=== PATIENT | male | born 1960 | race Two or more races ===

== ENCOUNTER 2017-05-07 10:33 | Inpatient (IN) | payer OTHER ==
[2017-05-07 10:55] VITALS: BMI 28.5
--- NOTE | 2017-05-07 13:05 | HP ---
COWS - Scale Resting Pulse: 1= [place] 81-100 Sweatin=Flushed/Facial Moisture Restless Observation: 3= Extraneous Movement Pupil Size: 2= Moderately Dilated Bone or Joint Aches: 2= Severe Diffuse Aches Runny Nose/ Eye Tearin= Runny Nose/Eyes GI Upset > 30mins: 3= Vomiting/Diarrhea Tremor Observation: 2= Slight Tremor Visible Yawning Observation: 1= 1-2x During Session Anxiety or Irritability: 2=Irritable/Anxious Goose Flesh Skin: 0=Smooth Skin COWS Score: 20 Admission ROS S - HPI Chief Complaint: i am here for detox from heroin Allergies/Adverse Reactions: Allergies Allergy/AdvReac Type Severity Reaction Status Date / Time No Known Allergies Allergy Verified 05/07/17 11:36 History of Present Illness: this 56 years old male with heroin and cocaine dependence,seeking detox,last detox 01/14/15 to 01/17/15 [facility] not completed extensive history of drug dependence weight loss no significant period of sobriety - Ebola screening Have you traveled outside of the country in the last 21 days: No Have you had contact with anyone from an Ebola affected area: No Have you been sick,other than usual withdrawal symptoms: No - Review of Systems Constitutional: Chills, Loss of Appetite, Malaise, Night Sweats, Changes in sleep, Weakness, Unintentional Wgt. Loss EENT: reports: Tearing, Nose Congestion Respiratory: reports: No Symptoms reported Cardiac: reports: No Symptoms Reported GI: reports: Diarrhea, Nausea, Vomiting, Abdominal cramping : reports: No Symptoms Reported Musculoskeletal: reports: Back Pain, Joint Pain, Muscle Pain, Joint Stiffness Integumentary: reports: Dryness Neuro: reports: Headache, Tremors Endocrine: reports: No Symptoms Reported Hematology: reports: No Symptoms Reported Psychiatric: reports: No Sypmtoms Reported, Depressed Other Systems: Reviewed and Negative Patient History - Patient Medical History Hx Anemia: No Hx Asthma: No Hx Chronic Obstructive Pulmonary Disease (COPD): No Hx Cancer: No Hx Cardiac Disorders: No Hx Congestive Heart Failure: No Hx Hypertension: Yes (no med) Hx Hypercholesterolemia: No Hx Pacemaker: No HX Cerebrovascular Accident: No Hx Seizures: No Hx Dementia: No Hx Diabetes: No Hx Gastrointestinal Disorders: No Hx Liver Disease: No Hx Genitourinary Disorders: No Hx Sexually Transmitted Disorders: No Hx Renal Disease (ESRD): No Hx Thyroid Disease: No Hx Human Immunodeficiency Virus (HIV): No (negative 2016) Hx Hepatitis C: No Hx Depression: No Hx Suicide Attempt: No Hx Bipolar Disorder: No Hx Schizophrenia: No Other Medical History: no suicidal.no homicidal - Patient Surgical History Past Surgical History: Yes Hx Neurologic Surgery: No Hx Cataract Extraction: No Hx Cardiac Surgery: No Hx Lung Surgery: No Hx Breast Surgery: No Hx Breast Biopsy: No Hx Abdominal Surgery: Yes (L INGUINAL HERNIA REPAIR in 2013) Hx Appendectomy: No Hx Cholecystectomy: No Hx Genitourinary Surgery: No Hx Section: No Hx Orthopedic Surgery: No Anesthesia Reaction: No - PPD History Previous Implant?: Yes Documented Results: Positive w/o proof Implanted On Prior [facility] Admission?: No PPD to be Administered?: No - Smoking Cessation Smoking history: Current every day smoker Have you smoked in the past 12 months: Yes Aproximately how many cigarettes per day: 10 Hx Chewing Tobacco Use: No Initiated information on smoking cessation: Yes 'Breaking Loose' booklet given: 05/07/17 - Substance & Tx. History Hx Alcohol Use: No Hx Substance Use: Yes Substance Use Type: Cocaine, Heroin Hx Substance Use Treatment: Yes ([facility] 01/14/15 to 01/17/15 not completed) - Substances Abused Heroin Route: Inhalation Frequency: Daily Amount used: 10-11 bags Age of first use: 24 Date of Last Use: 05/07/17 Cocaine Route: Inhalation Frequency: 1-2 times per week Amount used: 20$ Age of first use: 22 Date of Last Use: 04/24/17 Family Disease History - Family Disease History Family Disease History: Heart Disease: Father () Admission Physical Exam S - Vital Signs Vital Signs: Vital Signs - 24 hr 05/07/17 10:54 Temperature 98.1 F Pulse Rate 80 Respiratory 18 Rate Blood Pressure 163/101 - Physical General Appearance: Yes: Moderate Distress, Tremorous, Irritable, Sweating, Anxious HEENTM: Yes: Normal ENT Inspection, HOLLI, Pharynx Normal Respiratory: Yes: Lungs Clear, Normal Breath Sounds, No Respiratory Distress Neck: Yes: Within Normal Limits, Supple, Trachea in good position Breast: Yes: Breast Exam Deferred, Within Normal Limits Cardiology: Yes: Within Normal Limits, Regular Rhythm, Regular Rate, S1, S2 Abdominal: Yes: Within Normal Limits, Normal Bowel Sounds, Non Tender, Flat, Soft, Surgical Scar Genitourinary: Yes: Within Normal Limits Back: Yes: Normal Inspection, Muscle Spasm Musculoskeletal: Yes: Back pain, Joint Stiffness, Muscle Pain Extremities: Yes: Normal Range of Motion, Tremors Neurological: Yes: auto body man II-XII NML intact, Alert, Motor Strength 5/5 Integumentary: Yes: Dry Lymphatic: Yes: Within Normal Limits - Diagnostic (1) Opioid dependence with withdrawal Current Visit: Yes Status: Acute (2) Cocaine dependence Current Visit: Yes Status: Acute (3) Hypertension Current Visit: No Status: Chronic (4) Depression Current Visit: Yes Status: Acute (5) Positive PPD Current Visit: Yes Status: Acute (6) Weight loss Current Visit: Yes Status: Acute Cleared for Admission [facility] - [facility] Level of Care: Medically Managed Detox Regimen/Protocol: Methadone [facility] Breath Alcohol Content Breath Alcohol Content: 0 Urine Drug Screen - Results Drug Screen Negative: No Urine Drug Screen Results: GIOVANNA-Cocaine, OPI-Opiates
[2017-05-07] MEDS ORDERED: hydrOXYzine PAMOATE 25 MG CAPSULE (FP) PO PRN (13:24)
[2017-05-07] MEDS ORDERED: P-EPHED 60MG/TRIPROLIDI 2.5MG TABLET PO PRN (13:24)
[2017-05-07] MEDS ORDERED: LOPERAMIDE HCL 2 MG CAPSULE PO PRN (13:24)
[2017-05-07] MEDS ORDERED: MAG HYDROX/AL HYDROX/SIMETH 30 ML UNIT-DOSE CUP PO PRN (13:24)
[2017-05-07] MEDS ORDERED: MENTHOL/PHENOL 1 EACH UD MM PRN (13:24)
[2017-05-07] MEDS ORDERED: MAGNESIUM CITRATE 300 ML BOTTLE PO PRN (13:24)
[2017-05-07] MEDS ORDERED: guaiFENesin/D-METHORPHAN HB 10 ML UNIT-DOSE CUPS PO PRN (13:24)
[2017-05-07] MEDS ORDERED: MAGNESIUM HYDROX 2400MG/30ML ORAL SUSPENSION 30 ML CUP PO PRN (13:24)
[2017-05-07] MEDS ORDERED: ACETAMINOPHEN 325 MG TABLET (FP) PO PRN (13:24)
[2017-05-07] MEDS ORDERED: METHADONE HCL 10 MG TABLET (FOR DETOX USE ONLY) PO ONE ×2 (13:57→23:00)
[2017-05-07] MEDS: diazePAM 5 MG TABLET PO PRN ×2 (14:20→21:33)
[2017-05-07] MEDS: NICOTINE 21 MG/24 HOURS TOPICAL PATCH TD SCH (14:20)
--- NOTE | 2017-05-07 15:09 | EKG ---
Test Reason : Blood Pressure : / mmHG Vent. Rate : 078 BPM Atrial Rate : 078 BPM P-R Int : 148 ms QRS Dur : 094 ms QT Int : 404 ms P-R-T Axes : 058 030 040 degrees QTc Int : 460 ms NORMAL SINUS RHYTHM VOLTAGE CRITERIA FOR LEFT VENTRICULAR HYPERTROPHY NONSPECIFIC T WAVE ABNORMALITY PROLONGED QT ABNORMAL ECG NO PREVIOUS ECGS AVAILABLE Confirmed by Que Rodriguez ([id number]) on 05/07/2017 3:09:00 PM Referred By: Confirmed By:Que Rodriguez
--- NOTE | 2017-05-07 16:40 | PN ---
Isabel Progress Note Note: patient has history of hypertension bp 200/105 hypertension begin amlodopin 10 mg now and lisinopril 10 mg now case discussed with nurse who care for the patient, medications are available now continue monitor bp around 6pm
[2017-05-07] MEDS: LISINOPRIL 10 MG TABLET (FP) PO SCH ×2 (16:45→21:33)
[2017-05-07] MEDS: amLODIPine BESYLATE 10 MG TABLET (FP) PO SCH (16:45)
[2017-05-07] MEDS: cloNIDine HCL 0.1 MG TABLET PO PRN ×2 (17:57→23:43)
[2017-05-07] MEDS: THIAMINE HCL 100 MG TABLET (FP) PO SCH (21:33)
[2017-05-07 22:27] LABS: URINE APPEARANCE CLEAR; URINE BILIRUBIN NEGATIVE (NEGATIVE); URINE BLOOD NEGATIVE (NEGATIVE); URINE COLOR DKYELLOW; URINE GLUCOSE (UA) NEGATIVE (NEGATIVE); URINE KETONE NEGATIVE (NEGATIVE); URINE LEUK ESTERASE NEGATIVE (NEGATIVE); URINE NITRITE NEGATIVE (NEGATIVE); URINE PROTEIN NEGATIVE (NEGATIVE); URINE UROBILINOGEN 4.0 E.U/dl mg/dL (0.2-1.0)
[2017-05-08] MEDS: diazePAM 5 MG TABLET PO PRN ×2 (07:15→21:48)
[2017-05-08] MEDS: IBUPROFEN 400 MG TABLET (FP) PO PRN (07:16)
[2017-05-08] MEDS: cloNIDine HCL 0.1 MG TABLET PO PRN ×2 (07:16→18:40)
[2017-05-08 09:52] LABS: HEMATOCRIT 43.4 % (35.4-49); HEMOGLOBIN 14.1 GM/dL (11.7-16.9); MCH 32.7 pg (25.7-33.7); MCHC 32.5 g/dl (32.0-35.9); MEAN CELL VOLUME 100.8 fl (80-96); MEAN PLT VOLUME 9.3 fl (7.5-11.1); PLATELET COUNT 227 K/MM3 (134-434); RDW 13.5 % (11.9-15.9); WHITE BLOOD COUNT 7.1 K/mm3 (4.0-10.0)
--- NOTE | 2017-05-08 09:57 | PN ---
BHS COWS - Scale Resting Pulse: 1= [place] 81-100 Sweatin= Chills/Flushing Restless Observation: 3= Extraneous Movement Pupil Size: 2= Moderately Dilated Bone or Joint Aches: 4=Acute Joint/Muscle Pain Runny Nose/ Eye Tearin= None GI Upset > 30mins: 0= None Tremor Observation of Outstretched Hands: 1= Tremor [place], Not Seen Yawning Observation: 1= 1-2x During Session Anxiety or Irritability: 2=Irritable/Anxious Goose Flesh Skin: 0=Smooth Skin COWS Score: 15 BHS Progress Note (SOAP) Subjective: ANXIETY,SWEATS, MUSCLE AND JOINT PAINS, YAWNING,FATIGUE. Objective: 05/08/17 10:38 Vital Signs 05/08/17 05/08/17 05/08/17 03:30 06:12 07:53 Temperature 97 F L Pulse Rate 75 72 Respiratory 18 18 Rate Blood Pressure 183/105 172/91 05/08/17 09:24 Temperature 97.5 F L Pulse Rate 99 H Respiratory 20 Rate Blood Pressure 139/90 Laboratory Last Values WBC 7.1 K/mm3 (4.0-10.0) 05/08/17 06:00 RBC 4.30 M/mm3 (4.00-5.60) 05/08/17 06:00 Hgb 14.1 GM/dL (11.7-16.9) 05/08/17 06:00 Hct 43.4 % (35.4-49) 05/08/17 06:00 MCV 100.8 fl (80-96) H 05/08/17 06:00 MCH 32.7 pg (25.7-33.7) 05/08/17 06:00 MCHC 32.5 g/dl (32.0-35.9) 05/08/17 06:00 RDW 13.5 % (11.9-15.9) 05/08/17 06:00 Plt Count 227 K/MM3 (134-434) 05/08/17 06:00 MPV 9.3 fl (7.5-11.1) 05/08/17 06:00 Sodium 141 mmol/L (136-145) 05/08/17 06:00 Potassium 4.1 mmol/L (3.5-5.1) 05/08/17 06:00 Chloride 103 mmol/L (98-107) 05/08/17 06:00 Carbon Dioxide 30 mmol/L (21-32) 05/08/17 06:00 Anion Gap 8 (8-16) 05/08/17 06:00 BUN 15 mg/dL (7-18) 05/08/17 06:00 Creatinine 0.7 mg/dL (0.7-1.3) D 05/08/17 06:00 Creat Clearance w eGFR > 60 (>60) 05/08/17 06:00 Random Glucose 84 mg/dL (74-106) 05/08/17 06:00 Calcium 8.7 mg/dL (8.5-10.1) 05/08/17 06:00 Total Bilirubin 0.4 mg/dL (0.2-1.0) 05/08/17 06:00 AST 57 U/L (15-37) H D 05/08/17 06:00 ALT 59 U/L (12-78) D 05/08/17 06:00 Alkaline Phosphatase 155 U/L (45-117) H D 05/08/17 06:00 Total Protein 6.8 g/dl (6.4-8.2) 05/08/17 06:00 Albumin 3.6 g/dl (3.4-5.0) 05/08/17 06:00 Urine Color Dkyellow 05/07/17 15:45 Urine Appearance Clear 05/07/17 15:45 Urine pH 6.0 (5.0-8.0) 05/07/17 15:45 Ur Specific [place] 1.021 (1.001-1.035) 05/07/17 15:45 Urine Protein Negative (NEGATIVE) 05/07/17 15:45 Urine Glucose (UA) Negative (NEGATIVE) 05/07/17 15:45 Urine Ketones Negative (NEGATIVE) 05/07/17 15:45 Urine Blood Negative (NEGATIVE) 05/07/17 15:45 Urine Nitrite Negative (NEGATIVE) 05/07/17 15:45 Urine Bilirubin Negative (NEGATIVE) 05/07/17 15:45 Urine Urobilinogen 4.0 e.u/dl mg/dL (0.2-1.0) 05/07/17 15:45 Ur Leukocyte Esterase Negative (NEGATIVE) 05/07/17 15:45 RPR Titer Nonreactive (NONREACTIVE) 05/08/17 06:00 Assessment: 05/08/17 13:14 WITHDRAWAL SX Plan: CONTINUE DETOX
[2017-05-08 09:58] LABS: CHLORIDE 103 mmol/L (98-107); POTASSIUM 4.1 mmol/L (3.5-5.1); SODIUM 141 mmol/L (136-145)
[2017-05-08] MEDS ORDERED: METHADONE HCL 10 MG TABLET (FOR DETOX USE ONLY) PO ONE (10:00)
[2017-05-08 10:08] LABS: ALBUMIN 3.6 g/dl (3.4-5.0); ALK PHOS 155 U/L (45-117); ANION GAP 8 (8-16); BILIRUBIN,TOTAL 0.4 mg/dL (0.2-1.0); BLOOD UREA NITROGEN 15 mg/dL (7-18); CALCIUM 8.7 mg/dL (8.5-10.1); CO2 30 mmol/L (21-32); CREATININE 0.7 mg/dL (0.7-1.3); GLUCOSE,RANDOM 84 mg/dL (74-106); SGOT/AST 57 U/L (15-37); SGPT/ALT 59 U/L (12-78); TOT PROT 6.8 g/dl (6.4-8.2)
[2017-05-08] MEDS: amLODIPine BESYLATE 10 MG TABLET (FP) PO SCH (10:16)
[2017-05-08] MEDS: PRENATAL VITAMINS W/ FOLIC ACID TABLET (FP) PO SCH (10:16)
[2017-05-08] MEDS: LISINOPRIL 10 MG TABLET (FP) PO SCH ×2 (10:16→21:49)
[2017-05-08] MEDS: NICOTINE 21 MG/24 HOURS TOPICAL PATCH TD SCH (10:16)
--- NOTE | 2017-05-08 14:11 | CONSULT ---
[facility] Psychiatric Consult - Data Date of interview: 05/08/17 Admission source: [facility] Identifying data: Readmission to [facility] for this 56 y/o male seeking detox treatment on for heroin and cocaine dependence.Patient is single,a father of seven,homeless,unemployed and reportedly denied of financial assistance. Substance Abuse History: Confirmed by patient in this interview.See current [facility] report for details : Smoking history: Current every day smoker. Have you smoked in the past 12 months: Yes. Aproximately how many cigarettes per day: 10. Hx Chewing Tobacco Use: No. Initiated information on smoking cessation: Yes. 'Breaking Loose' booklet given: 05/07/17. - Substance & Tx. History. Hx Alcohol Use: No. Hx Substance Use: Yes. Substance Use Type: Cocaine, Heroin. Hx Substance Use Treatment: Yes ([facility] 01/14/15 to 01/17/15 not completed). - Substances Abused. Heroin. Route: Inhalation. Frequency: Daily. Amount used: 10-11 bags. Age of first use: 24. Date of Last Use: 05/07/17. Cocaine. Route: Inhalation. Frequency: 1-2 times per week. Amount used: 20$. Age of first use: 22. Date of Last Use: 04/24/17 Medical History: Hypertension,arthritis and a history of left inguinal herniorraphy. Psychiatric History: Patient denies. Physical/Sexual Abuse/Trauma History: Patient denies. Additional Comment: Urine Drug Screen Results: GIOVANNA-Cocaine, OPI-Opiates.Noted. Mental Status Exam - Mental Status Exam Alert and Oriented to: Time, Place, Person Cognitive Function: Good Patient Appearance: Well Groomed (tattoos on both forearms) Mood: Nervous, Withdrawn, Anxious Affect: Mood Congruent, Constricted Patient Behavior: Fatigued, Appropriate, Cooperative Speech Pattern: Clear, Appropriate (estonian-speaking) Voice Loudness: Normal Thought Process: Intact, Goal Oriented Thought Disorder: Not Present Hallucinations: Denies Suicidal Ideation: Denies Homicidal Ideation: Denies Insight/Judgement: Poor Sleep: Well Appetite: Good Muscle strength/Tone: Normal Gait/Station: Normal Psychiatric Findings - Problem List ([place] 1, 2,3) (1) Opioid dependence with withdrawal Current Visit: Yes Status: Acute (2) Cocaine dependence Current Visit: Yes Status: Acute Qualifiers: Substance use status: uncomplicated Qualified Code(s): F14.20 - Cocaine dependence, uncomplicated (3) Nicotine dependence Current Visit: Yes Status: Acute - Initial Treatment Plan Initial Treatment Plan: Psychoeducation.Detoxification.Observation.
[2017-05-08] MEDS: THIAMINE HCL 100 MG TABLET (FP) PO SCH (21:48)
[2017-05-09] MEDS: IBUPROFEN 400 MG TABLET (FP) PO PRN (05:02)
[2017-05-09] MEDS: diazePAM 5 MG TABLET PO PRN ×2 (05:30→22:00)
[2017-05-09] MEDS: cloNIDine HCL 0.1 MG TABLET PO PRN (05:30)
[2017-05-09] MEDS ORDERED: METHADONE HCL 5 MG TABLET (FOR DETOX USE ONLY) PO ONE (10:00)
--- NOTE | 2017-05-09 10:15 | PN ---
BHS COWS - Scale Resting Pulse: 2= [place] 101-120 Sweatin= Chills/Flushing Restless Observation: 3= Extraneous Movement Pupil Size: 0= Normal to Room Light Bone or Joint Aches: 4=Acute Joint/Muscle Pain Runny Nose/ Eye Tearin= None GI Upset > 30mins: 0= None Tremor Observation of Outstretched Hands: 1= Tremor [place], Not Seen Yawning Observation: 2= >3x During Session Anxiety or Irritability: 2=Irritable/Anxious Goose Flesh Skin: 0=Smooth Skin COWS Score: 15 BHS Progress Note (SOAP) Subjective: ANXIETY,SWEATS/CHILLS,FATIGUE. Objective: 05/09/17 10:15 Vital Signs Temperature 98.4 F 05/09/17 08:49 Pulse Rate 104 H 05/09/17 08:49 Respiratory Rate 18 05/09/17 08:49 Blood Pressure 153/89 05/09/17 08:49 O2 Sat by Pulse Oximetry (%) Laboratory Last Values WBC 7.1 K/mm3 (4.0-10.0) 05/08/17 06:00 RBC 4.30 M/mm3 (4.00-5.60) 05/08/17 06:00 Hgb 14.1 GM/dL (11.7-16.9) 05/08/17 06:00 Hct 43.4 % (35.4-49) 05/08/17 06:00 MCV 100.8 fl (80-96) H 05/08/17 06:00 MCH 32.7 pg (25.7-33.7) 05/08/17 06:00 MCHC 32.5 g/dl (32.0-35.9) 05/08/17 06:00 RDW 13.5 % (11.9-15.9) 05/08/17 06:00 Plt Count 227 K/MM3 (134-434) 05/08/17 06:00 MPV 9.3 fl (7.5-11.1) 05/08/17 06:00 Sodium 141 mmol/L (136-145) 05/08/17 06:00 Potassium 4.1 mmol/L (3.5-5.1) 05/08/17 06:00 Chloride 103 mmol/L (98-107) 05/08/17 06:00 Carbon Dioxide 30 mmol/L (21-32) 05/08/17 06:00 Anion Gap 8 (8-16) 05/08/17 06:00 BUN 15 mg/dL (7-18) 05/08/17 06:00 Creatinine 0.7 mg/dL (0.7-1.3) D 05/08/17 06:00 Creat Clearance w eGFR > 60 (>60) 05/08/17 06:00 Random Glucose 84 mg/dL (74-106) 05/08/17 06:00 Calcium 8.7 mg/dL (8.5-10.1) 05/08/17 06:00 Total Bilirubin 0.4 mg/dL (0.2-1.0) 05/08/17 06:00 AST 57 U/L (15-37) H D 05/08/17 06:00 ALT 59 U/L (12-78) D 05/08/17 06:00 Alkaline Phosphatase 155 U/L (45-117) H D 05/08/17 06:00 Total Protein 6.8 g/dl (6.4-8.2) 05/08/17 06:00 Albumin 3.6 g/dl (3.4-5.0) 05/08/17 06:00 Urine Color Dkyellow 05/07/17 15:45 Urine Appearance Clear 05/07/17 15:45 Urine pH 6.0 (5.0-8.0) 05/07/17 15:45 Ur Specific [place] 1.021 (1.001-1.035) 05/07/17 15:45 Urine Protein Negative (NEGATIVE) 05/07/17 15:45 Urine Glucose (UA) Negative (NEGATIVE) 05/07/17 15:45 Urine Ketones Negative (NEGATIVE) 05/07/17 15:45 Urine Blood Negative (NEGATIVE) 05/07/17 15:45 Urine Nitrite Negative (NEGATIVE) 05/07/17 15:45 Urine Bilirubin Negative (NEGATIVE) 05/07/17 15:45 Urine Urobilinogen 4.0 e.u/dl mg/dL (0.2-1.0) 05/07/17 15:45 Ur Leukocyte Esterase Negative (NEGATIVE) 05/07/17 15:45 RPR Titer Nonreactive (NONREACTIVE) 05/08/17 06:00 Assessment: 05/09/17 10:15 WITHDRAWAL SX Plan: CONTINUE DETOX
[2017-05-09] MEDS: PRENATAL VITAMINS W/ FOLIC ACID TABLET (FP) PO SCH (10:19)
[2017-05-09] MEDS: LISINOPRIL 10 MG TABLET (FP) PO SCH ×2 (10:19→22:01)
[2017-05-09] MEDS: amLODIPine BESYLATE 10 MG TABLET (FP) PO SCH (10:19)
[2017-05-09] MEDS: FLUTICASONE PROP 0.05% 16 GM NASAL SPRAY NS SCH (10:19)
[2017-05-09] MEDS: NICOTINE 21 MG/24 HOURS TOPICAL PATCH TD SCH (10:20)
[2017-05-09] MEDS: THIAMINE HCL 100 MG TABLET (FP) PO SCH (22:00)
[2017-05-10] MEDS: IBUPROFEN 400 MG TABLET (FP) PO PRN (04:47)
[2017-05-10] MEDS: amLODIPine BESYLATE 10 MG TABLET (FP) PO SCH (09:13)
[2017-05-10] MEDS: diazePAM 5 MG TABLET PO PRN (09:13)
[2017-05-10] MEDS: PRENATAL VITAMINS W/ FOLIC ACID TABLET (FP) PO SCH (09:13)
[2017-05-10] MEDS: LISINOPRIL 10 MG TABLET (FP) PO SCH ×2 (09:14→22:03)
[2017-05-10] MEDS: FLUTICASONE PROP 0.05% 16 GM NASAL SPRAY NS SCH (09:15)
[2017-05-10] MEDS ORDERED: METHADONE HCL 5 MG TABLET (FOR DETOX USE ONLY) PO ONE (10:00)
[2017-05-10] MEDS: NICOTINE 21 MG/24 HOURS TOPICAL PATCH TD SCH (10:42)
--- NOTE | 2017-05-10 11:39 | PN ---
S Progress Note (SOAP) Subjective: ANXIETY,DIARRHEA,FATIGUE. Objective: 05/10/17 11:35 Vital Signs Temperature 97.0 F L 05/10/17 09:23 Pulse Rate 102 H 05/10/17 09:23 Respiratory Rate 20 05/10/17 09:23 Blood Pressure 173/103 05/10/17 09:23 O2 Sat by Pulse Oximetry (%) Laboratory Last Values WBC 7.1 K/mm3 (4.0-10.0) 05/08/17 06:00 RBC 4.30 M/mm3 (4.00-5.60) 05/08/17 06:00 Hgb 14.1 GM/dL (11.7-16.9) 05/08/17 06:00 Hct 43.4 % (35.4-49) 05/08/17 06:00 MCV 100.8 fl (80-96) H 05/08/17 06:00 MCH 32.7 pg (25.7-33.7) 05/08/17 06:00 MCHC 32.5 g/dl (32.0-35.9) 05/08/17 06:00 RDW 13.5 % (11.9-15.9) 05/08/17 06:00 Plt Count 227 K/MM3 (134-434) 05/08/17 06:00 MPV 9.3 fl (7.5-11.1) 05/08/17 06:00 Sodium 141 mmol/L (136-145) 05/08/17 06:00 Potassium 4.1 mmol/L (3.5-5.1) 05/08/17 06:00 Chloride 103 mmol/L (98-107) 05/08/17 06:00 Carbon Dioxide 30 mmol/L (21-32) 05/08/17 06:00 Anion Gap 8 (8-16) 05/08/17 06:00 BUN 15 mg/dL (7-18) 05/08/17 06:00 Creatinine 0.7 mg/dL (0.7-1.3) D 05/08/17 06:00 Creat Clearance w eGFR > 60 (>60) 05/08/17 06:00 Random Glucose 84 mg/dL (74-106) 05/08/17 06:00 Calcium 8.7 mg/dL (8.5-10.1) 05/08/17 06:00 Total Bilirubin 0.4 mg/dL (0.2-1.0) 05/08/17 06:00 AST 57 U/L (15-37) H D 05/08/17 06:00 ALT 59 U/L (12-78) D 05/08/17 06:00 Alkaline Phosphatase 155 U/L (45-117) H D 05/08/17 06:00 Total Protein 6.8 g/dl (6.4-8.2) 05/08/17 06:00 Albumin 3.6 g/dl (3.4-5.0) 05/08/17 06:00 Urine Color Dkyellow 05/07/17 15:45 Urine Appearance Clear 05/07/17 15:45 Urine pH 6.0 (5.0-8.0) 05/07/17 15:45 Ur Specific [place] 1.021 (1.001-1.035) 05/07/17 15:45 Urine Protein Negative (NEGATIVE) 05/07/17 15:45 Urine Glucose (UA) Negative (NEGATIVE) 05/07/17 15:45 Urine Ketones Negative (NEGATIVE) 05/07/17 15:45 Urine Blood Negative (NEGATIVE) 05/07/17 15:45 Urine Nitrite Negative (NEGATIVE) 05/07/17 15:45 Urine Bilirubin Negative (NEGATIVE) 05/07/17 15:45 Urine Urobilinogen 4.0 e.u/dl mg/dL (0.2-1.0) 05/07/17 15:45 Ur Leukocyte Esterase Negative (NEGATIVE) 05/07/17 15:45 RPR Titer Nonreactive (NONREACTIVE) 05/08/17 06:00 Assessment: 05/10/17 11:35 WITHDRAWAL SX Plan: CONTINUE DETOX
[2017-05-10] MEDS: THIAMINE HCL 100 MG TABLET (FP) PO SCH (22:02)
[2017-05-10] MEDS: cloNIDine HCL 0.1 MG TABLET PO SCH (22:03)
[2017-05-11] MEDS ORDERED: METHADONE HCL 10 MG TABLET (FOR DETOX USE ONLY) PO ONE (10:00)
[2017-05-11] MEDS: LISINOPRIL 10 MG TABLET (FP) PO SCH ×2 (10:26→22:43)
[2017-05-11] MEDS: PRENATAL VITAMINS W/ FOLIC ACID TABLET (FP) PO SCH (10:26)
[2017-05-11] MEDS: cloNIDine HCL 0.1 MG TABLET PO SCH ×2 (10:26→22:43)
[2017-05-11] MEDS: amLODIPine BESYLATE 10 MG TABLET (FP) PO SCH (10:26)
[2017-05-11] MEDS: FLUTICASONE PROP 0.05% 16 GM NASAL SPRAY NS SCH (10:26)
[2017-05-11] MEDS: NICOTINE 21 MG/24 HOURS TOPICAL PATCH TD SCH (10:38)
--- NOTE | 2017-05-11 13:35 | PN ---
S Progress Note (SOAP) Subjective: Fatigue, back pain,diarrhea Objective: 05/11/17 13:34 Vital Signs - 8 hr 05/11/17 05/11/17 06:18 09:45 Temperature 96.4 F L 97.6 F Pulse Rate 84 102 H Respiratory 18 20 Rate Blood Pressure 139/83 154/98 Laboratory Last Values WBC 7.1 K/mm3 (4.0-10.0) 05/08/17 06:00 RBC 4.30 M/mm3 (4.00-5.60) 05/08/17 06:00 Hgb 14.1 GM/dL (11.7-16.9) 05/08/17 06:00 Hct 43.4 % (35.4-49) 05/08/17 06:00 MCV 100.8 fl (80-96) H 05/08/17 06:00 MCH 32.7 pg (25.7-33.7) 05/08/17 06:00 MCHC 32.5 g/dl (32.0-35.9) 05/08/17 06:00 RDW 13.5 % (11.9-15.9) 05/08/17 06:00 Plt Count 227 K/MM3 (134-434) 05/08/17 06:00 MPV 9.3 fl (7.5-11.1) 05/08/17 06:00 Sodium 141 mmol/L (136-145) 05/08/17 06:00 Potassium 4.1 mmol/L (3.5-5.1) 05/08/17 06:00 Chloride 103 mmol/L (98-107) 05/08/17 06:00 Carbon Dioxide 30 mmol/L (21-32) 05/08/17 06:00 Anion Gap 8 (8-16) 05/08/17 06:00 BUN 15 mg/dL (7-18) 05/08/17 06:00 Creatinine 0.7 mg/dL (0.7-1.3) D 05/08/17 06:00 Creat Clearance w eGFR > 60 (>60) 05/08/17 06:00 Random Glucose 84 mg/dL (74-106) 05/08/17 06:00 Calcium 8.7 mg/dL (8.5-10.1) 05/08/17 06:00 Total Bilirubin 0.4 mg/dL (0.2-1.0) 05/08/17 06:00 AST 57 U/L (15-37) H D 05/08/17 06:00 ALT 59 U/L (12-78) D 05/08/17 06:00 Alkaline Phosphatase 155 U/L (45-117) H D 05/08/17 06:00 Total Protein 6.8 g/dl (6.4-8.2) 05/08/17 06:00 Albumin 3.6 g/dl (3.4-5.0) 05/08/17 06:00 Urine Color Dkyellow 05/07/17 15:45 Urine Appearance Clear 05/07/17 15:45 Urine pH 6.0 (5.0-8.0) 05/07/17 15:45 Ur Specific [place] 1.021 (1.001-1.035) 05/07/17 15:45 Urine Protein Negative (NEGATIVE) 05/07/17 15:45 Urine Glucose (UA) Negative (NEGATIVE) 05/07/17 15:45 Urine Ketones Negative (NEGATIVE) 05/07/17 15:45 Urine Blood Negative (NEGATIVE) 05/07/17 15:45 Urine Nitrite Negative (NEGATIVE) 05/07/17 15:45 Urine Bilirubin Negative (NEGATIVE) 05/07/17 15:45 Urine Urobilinogen 4.0 e.u/dl mg/dL (0.2-1.0) 05/07/17 15:45 Ur Leukocyte Esterase Negative (NEGATIVE) 05/07/17 15:45 RPR Titer Nonreactive (NONREACTIVE) 05/08/17 06:00 Labs noted Assessment: 05/11/17 13:34 Withdrawal sx Plan: Continue detox
[2017-05-11] MEDS: IBUPROFEN 400 MG TABLET (FP) PO PRN (17:43)
[2017-05-11] MEDS: THIAMINE HCL 100 MG TABLET (FP) PO SCH (22:43)
[2017-05-12] MEDS: IBUPROFEN 400 MG TABLET (FP) PO PRN (05:17)
[2017-05-12] MEDS ORDERED: METHADONE HCL 5 MG TABLET (FOR DETOX USE ONLY) PO ONE (06:00)
[2017-05-12 06:18] VITALS: BP 121/69; PULSE 72; TEMP 96
--- NOTE | 2017-05-12 12:00 | DS ---
[facility] Detox Discharge Summary Admission Date: 05/07/17 Discharge Date: 05/12/17 - History Present History: Cocaine Dependence, Opioid Dependence Pertinent Past History: HTN Hx positive PPD - Physical Exam Results Vital Signs: Vital Signs Temperature 96 F L 05/12/17 06:18 Pulse Rate 72 05/12/17 06:18 Respiratory Rate 18 05/12/17 06:18 Blood Pressure 121/69 05/12/17 06:18 O2 Sat by Pulse Oximetry (%) Pertinent Admission Physical Exam Findings: withdrawal symptoms Laboratory Last Values WBC 7.1 K/mm3 (4.0-10.0) 05/08/17 06:00 RBC 4.30 M/mm3 (4.00-5.60) 05/08/17 06:00 Hgb 14.1 GM/dL (11.7-16.9) 05/08/17 06:00 Hct 43.4 % (35.4-49) 05/08/17 06:00 MCV 100.8 fl (80-96) H 05/08/17 06:00 MCH 32.7 pg (25.7-33.7) 05/08/17 06:00 MCHC 32.5 g/dl (32.0-35.9) 05/08/17 06:00 RDW 13.5 % (11.9-15.9) 05/08/17 06:00 Plt Count 227 K/MM3 (134-434) 05/08/17 06:00 MPV 9.3 fl (7.5-11.1) 05/08/17 06:00 Sodium 141 mmol/L (136-145) 05/08/17 06:00 Potassium 4.1 mmol/L (3.5-5.1) 05/08/17 06:00 Chloride 103 mmol/L (98-107) 05/08/17 06:00 Carbon Dioxide 30 mmol/L (21-32) 05/08/17 06:00 Anion Gap 8 (8-16) 05/08/17 06:00 BUN 15 mg/dL (7-18) 05/08/17 06:00 Creatinine 0.7 mg/dL (0.7-1.3) D 05/08/17 06:00 Creat Clearance w eGFR > 60 (>60) 05/08/17 06:00 Random Glucose 84 mg/dL (74-106) 05/08/17 06:00 Calcium 8.7 mg/dL (8.5-10.1) 05/08/17 06:00 Total Bilirubin 0.4 mg/dL (0.2-1.0) 05/08/17 06:00 AST 57 U/L (15-37) H D 05/08/17 06:00 ALT 59 U/L (12-78) D 05/08/17 06:00 Alkaline Phosphatase 155 U/L (45-117) H D 05/08/17 06:00 Total Protein 6.8 g/dl (6.4-8.2) 05/08/17 06:00 Albumin 3.6 g/dl (3.4-5.0) 05/08/17 06:00 Urine Color Dkyellow 05/07/17 15:45 Urine Appearance Clear 05/07/17 15:45 Urine pH 6.0 (5.0-8.0) 05/07/17 15:45 Ur Specific [place] 1.021 (1.001-1.035) 05/07/17 15:45 Urine Protein Negative (NEGATIVE) 05/07/17 15:45 Urine Glucose (UA) Negative (NEGATIVE) 05/07/17 15:45 Urine Ketones Negative (NEGATIVE) 05/07/17 15:45 Urine Blood Negative (NEGATIVE) 05/07/17 15:45 Urine Nitrite Negative (NEGATIVE) 05/07/17 15:45 Urine Bilirubin Negative (NEGATIVE) 05/07/17 15:45 Urine Urobilinogen 4.0 e.u/dl mg/dL (0.2-1.0) 05/07/17 15:45 Ur Leukocyte Esterase Negative (NEGATIVE) 05/07/17 15:45 RPR Titer Nonreactive (NONREACTIVE) 05/08/17 06:00 Labs noted - Treatment Hospital Course: Detox Protocol Followed, Detoxed Safely, Responded well, Discharged Condition Good Patient has Accepted a Rehab Referral to: Patient advised on self help group - Medication Discharge Medications: Ambulatory Orders NK [No Known Home Medication] 05/07/17 - Diagnosis (1) Cocaine dependence Status: Acute Qualifiers: Substance use status: uncomplicated Qualified Code(s): F14.20 - Cocaine dependence, uncomplicated (2) Nicotine dependence Status: Acute (3) Opioid dependence with withdrawal Status: Acute (4) Positive PPD Status: Acute (5) Weight loss Status: Acute (6) Hypertension Status: Chronic Qualifiers: Hypertension type: essential hypertension Qualified Code(s): I10 - Essential (primary) hypertension - AMA Did Patient Leave Against Medical Advice: No
== END 2017-05-12 09:15 | disposition home or self-care (01) | DRG 773 ==
LOC: YASAS 10:33 → Y3N 12:13
PROVIDERS: ADMIT Internal Medicine; ATTEND Internal Medicine
PROC: HZ2ZZZZ Detoxification Services for Substance Abuse Treatment (ICD-10-PCS; principal; 2017-05-07)
DX: F11.23 Opioid dependence with withdrawal (principal); F14.20 Cocaine dependence, uncomplicated; F17.210 Nicotine dependence, cigarettes, uncomplicated; I10 Essential (primary) hypertension; R63.4 Abnormal weight loss; Z68.25 Body mass index [BMI] 25.0-25.9, adult; R76.11 Nonspecific reaction to tuberculin skin test without active tuberculosis; Z59.0 Homelessness
CPT/HCPCS: 36415; 71046-TC; 80053; 81003; 85027; 86593; 93005; 93010

== ENCOUNTER 2017-09-15 11:59 | Inpatient (IN) | payer OTHER ==
[2017-09-15 12:27] VITALS: BMI 28.7
--- NOTE | 2017-09-15 12:45 | HP ---
COWS - Scale Resting Pulse: 2= [place] 101-120 Sweatin= Chills/Flushing Restless Observation: 3= Extraneous Movement Pupil Size: 2= Moderately Dilated Bone or Joint Aches: 2= Severe Diffuse Aches Runny Nose/ Eye Tearin= Runny Nose/Eyes GI Upset > 30mins: 3= Vomiting/Diarrhea Tremor Observation: 2= Slight Tremor Visible Yawning Observation: 2= >3x During Session Anxiety or Irritability: 2=Irritable/Anxious Goose Flesh Skin: 0=Smooth Skin COWS Score: 21 Admission ROS BHS - HPI Chief Complaint: i need help to stop using heroin Allergies/Adverse Reactions: Allergies Allergy/AdvReac Type Severity Reaction Status Date / Time No Known Allergies Allergy Verified 09/15/17 12:30 History of Present Illness: this 57 years old male with heroin dependence,seeking detox,withdrawal symptom, last detox [facility] 05/07/17 o 05/12/17 hypertension no medications hepatitis c treated old injury of right knee hit by the tire 25 years ago,limitation of right shoulder 45 degree hepatitis treated right kidney stone positive ppd nicotine dependence longest period of sobriety 3 years - Ebola screening Have you traveled outside of the country in the last 21 days: No (N) Have you had contact with anyone from an Ebola affected area: No Have you been sick,other than usual withdrawal symptoms: No Do you have a fever: No - Review of Systems Constitutional: Chills, Loss of Appetite, Malaise, Night Sweats, Changes in sleep, Weakness, Unintentional Wgt. Loss EENT: reports: Tearing, Nose Congestion Respiratory: reports: No Symptoms reported Cardiac: reports: No Symptoms Reported GI: reports: Nausea, Vomiting, Abdominal cramping Musculoskeletal: reports: Back Pain, Joint Pain, Muscle Pain Integumentary: reports: Dryness Neuro: reports: Headache, Tremors Endocrine: reports: No Symptoms Reported Hematology: reports: No Symptoms Reported Psychiatric: reports: No Sypmtoms Reported, Judgement Intact, Mood/Affect Appropiate, Orientated x3, Anxious, Depressed Patient History - Patient Medical History Hx Anemia: No Hx Asthma: No Hx Chronic Obstructive Pulmonary Disease (COPD): No Hx Cancer: No Hx Cardiac Disorders: No Hx Congestive Heart Failure: No Hx Hypertension: Yes (no med) Hx Hypercholesterolemia: No Hx Pacemaker: No HX Cerebrovascular Accident: No Hx Seizures: No Hx Dementia: No Hx Diabetes: No Hx Gastrointestinal Disorders: No Hx Liver Disease: No Hx Genitourinary Disorders: No Hx Sexually Transmitted Disorders: No Hx Renal Disease (ESRD): No Hx Thyroid Disease: No Hx Human Immunodeficiency Virus (HIV): No (negative 2017) Hx Hepatitis C: No Hx Depression: No Hx Suicide Attempt: No Hx Bipolar Disorder: No Hx Schizophrenia: No Other Medical History: no suicidal,no homicidal - Patient Surgical History Past Surgical History: Yes Hx Neurologic Surgery: No Hx Cataract Extraction: No Hx Cardiac Surgery: No Hx Lung Surgery: No Hx Breast Surgery: No Hx Breast Biopsy: No Hx Abdominal Surgery: Yes (L INGUINAL HERNIA REPAIR in 2013) Hx Appendectomy: No Hx Cholecystectomy: No Hx Genitourinary Surgery: No Hx Section: No Hx Orthopedic Surgery: No Anesthesia Reaction: No - PPD History Previous Implant?: Yes Documented Results: Positive w/proof PPD to be Administered?: No - Smoking Cessation Smoking history: Current every day smoker Have you smoked in the past 12 months: Yes Aproximately how many cigarettes per day: 10 Hx Chewing Tobacco Use: No Initiated information on smoking cessation: Yes 'Breaking Loose' booklet given: 09/15/17 - Substance & Tx. History Hx Alcohol Use: No Hx Substance Use: Yes Substance Use Type: Heroin Hx Substance Use Treatment: Yes (05/07/17 to 05/12/17) - Substances Abused Heroin Route: Inhalation Frequency: Daily Amount used: 2-4 bags daily Age of first use: 22 Date of Last Use: 09/14/17 Family Disease History - Family Disease History Family Disease History: Heart Disease: Father () Admission Physical Exam S - Vital Signs Vital Signs: Vital Signs - 24 hr 09/15/17 12:26 Temperature 98.6 F Pulse Rate 101 H Respiratory 20 Rate Blood Pressure 179/118 - Physical General Appearance: Yes: Moderate Distress, Tremorous, Irritable, Sweating, Anxious HEENTM: Yes: Normal ENT Inspection, HOLLI, Pharynx Normal Respiratory: Yes: Lungs Clear, Normal Breath Sounds, No Respiratory Distress Neck: Yes: Within Normal Limits Breast: Yes: Within Normal Limits Cardiology: Yes: Within Normal Limits, Regular Rhythm, Regular Rate, S1, S2 Abdominal: Yes: Within Normal Limits, Normal Bowel Sounds, Non Tender, Soft Genitourinary: Yes: Within Normal Limits Back: Yes: Muscle Spasm Musculoskeletal: Yes: Within Normal Limits, Back pain, Muscle Pain Extremities: Yes: Tremors (limitation of movement of right shoulder 45 degree) 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 NML intact, Fully Oriented, Alert, Motor Strength 5/5 Integumentary: Yes: Dry Lymphatic: Yes: Within Normal Limits - Diagnostic (1) Opioid dependence with withdrawal Current Visit: No Status: Acute (2) Nicotine dependence Current Visit: No Status: Acute (3) Weight loss Current Visit: No Status: Acute (4) Hypertension Current Visit: No Status: Chronic Qualifiers: Hypertension type: essential hypertension Qualified Code(s): I10 - Essential (primary) hypertension (5) Hepatitis C Current Visit: Yes Status: Acute (6) Nicotine dependence Current Visit: Yes Status: Acute (7) Frozen shoulder Current Visit: Yes Status: Acute (8) Kidney stone on right side Current Visit: Yes Status: Acute (9) Arthritis Current Visit: Yes Status: Acute (10) Insomnia secondary to depression with anxiety Current Visit: Yes Status: Acute Cleared for Admission [facility] - Detox or Rehab [facility] Level of Care: Medically Managed Detox Regimen/Protocol: Methadone [facility] Breath Alcohol Content Breath Alcohol Content: 0 Urine Drug Screen - Results Drug Screen Negative: No Urine Drug Screen Results: OPI-Opiates
[2017-09-15] MEDS ORDERED: LOPERAMIDE HCL 2 MG CAPSULE PO PRN (13:06)
[2017-09-15] MEDS ORDERED: IBUPROFEN 400 MG TABLET (FP) PO PRN (13:06)
[2017-09-15] MEDS ORDERED: METHADONE HCL 10 MG TABLET (FOR DETOX USE ONLY) PO ONE ×2 (13:06→23:00)
[2017-09-15] MEDS ORDERED: MAG HYDROX/AL HYDROX/SIMETH 30 ML UNIT-DOSE CUP PO PRN (13:06)
[2017-09-15] MEDS ORDERED: hydrOXYzine PAMOATE 25 MG CAPSULE (FP) PO PRN (13:06)
[2017-09-15] MEDS ORDERED: ACETAMINOPHEN 325 MG TABLET (FP) PO PRN (13:06)
[2017-09-15] MEDS ORDERED: MENTHOL/PHENOL 1 EACH UD MM PRN (13:06)
[2017-09-15] MEDS ORDERED: P-EPHED 60MG/TRIPROLIDI 2.5MG TABLET PO PRN (13:06)
[2017-09-15] MEDS ORDERED: MAGNESIUM CITRATE 300 ML BOTTLE PO PRN (13:06)
[2017-09-15] MEDS ORDERED: NICOTINE POLACRILEX 2 MG GUM BC PRN (13:06)
[2017-09-15] MEDS ORDERED: MAGNESIUM HYDROX 2400MG/30ML ORAL SUSPENSION 30 ML CUP PO PRN (13:06)
[2017-09-15] MEDS ORDERED: guaiFENesin/D-METHORPHAN HB 10 ML UNIT-DOSE CUPS PO PRN (13:06)
[2017-09-15] MEDS ORDERED: TRIAMTERENE AND HCTZ - 37.5 MG/25 MG CAPSULE PO ONE (13:30)
[2017-09-15] MEDS ORDERED: cloNIDine HCL 0.1 MG TABLET PO ONE (13:30)
[2017-09-15] MEDS: diazePAM 5 MG TABLET PO PRN ×3 (14:46→22:29)
[2017-09-15] MEDS: NICOTINE 21 MG/24 HOURS TOPICAL PATCH TD SCH (14:47)
[2017-09-15 18:14] LABS: URINE APPEARANCE CLEAR; URINE BILIRUBIN NEGATIVE (<2.0 mg/dL); URINE COLOR YELLOW; URINE GLUCOSE (UA) NEGATIVE (NEGATIVE); URINE KETONE NEGATIVE (NEGATIVE); URINE LEUK ESTERASE NEGATIVE (NEGATIVE); URINE NITRITE NEGATIVE (NEGATIVE); URINE PROTEIN NEGATIVE (NEGATIVE); URINE UROBILINOGEN 4.0 E.U/dl mg/dL (0.2-1.0)
--- NOTE | 2017-09-15 21:50 | EKG ---
Test Reason : Blood Pressure : / mmHG Vent. Rate : 095 BPM Atrial Rate : 095 BPM P-R Int : 144 ms QRS Dur : 100 ms QT Int : 374 ms P-R-T Axes : 058 024 053 degrees QTc Int : 469 ms NORMAL SINUS RHYTHM MODERATE VOLTAGE CRITERIA FOR LVH, MAY BE NORMAL VARIANT NONSPECIFIC T WAVE ABNORMALITY PROLONGED QT ABNORMAL ECG WHEN COMPARED WITH ECG OF 07-MAY-2017 15:02, NO SIGNIFICANT CHANGE WAS FOUND Confirmed by JUVE DELGADILLO MD ([id number]) on 09/15/2017 9:49:47 PM Referred By: Confirmed By:JUVE DELGADILLO MD
[2017-09-15] MEDS: cloNIDine HCL 0.1 MG TABLET PO SCH (22:29)
[2017-09-15] MEDS: THIAMINE HCL 100 MG TABLET (FP) PO SCH (22:29)
[2017-09-15] MEDS: MELATONIN 5 MG TABLETS PO PRN (22:30)
--- NOTE | 2017-09-16 09:17 | CONSULT ---
[facility] Psychiatric Consult - Data Date of interview: 09/16/17 Admission source: [facility] Identifying data: This is 57 years old male, , father of seven, unemployed, homeless, on PA, with no psychiatric hospitalization history, with heroin dependence,seeking detox, reports withdrawal symptom. Substance Abuse History: Smoking history: Current every day smoker. Have you smoked in the past 12 months: Yes. Aproximately how many cigarettes per day: 10. Hx Chewing Tobacco Use: No. Initiated information on smoking cessation: Yes. 'Breaking Loose' booklet given: 09/15/17. - Substance & Tx. History. Hx Alcohol Use: No. Hx Substance Use: Yes. Substance Use Type: Heroin. Hx Substance Use Treatment: Yes (05/07/17 to 05/12/17). - Substances Abused. Heroin. Route: Inhalation. Frequency: Daily. Amount used: 2-4 bags daily. Age of first use: 22. Date of Last Use: 09/14/17 Medical History: Weigth loss history, HepC+, Kidney stone, Arthritis Psychiatric History: Patient reports no psychiatric medications usage priorm to admission, reports no suicidal, holmicidal history. Physical/Sexual Abuse/Trauma History: Denies Additional Comment: Observation. Detox Unit Care Protocol Mental Status Exam - Mental Status Exam Alert and Oriented to: Person Cognitive Function: Fair Patient Appearance: Unkempt Mood: Sad Affect: Mood Congruent Patient Behavior: Cooperative Speech Pattern: Appropriate Voice Loudness: Mildly Soft/Quiet Thought Process: Circumstantial, Goal Oriented Thought Disorder: Being Controlled Hallucinations: Denies Suicidal Ideation: Denies Homicidal Ideation: Denies Insight/Judgement: Fair Sleep: Difficulty falling asleep Appetite: Weight loss Muscle strength/Tone: Mild Hypotonicity Gait/Station: Shuffling Additional Comments: Observation. Detox Unit Care Protocol Psychiatric Findings - Problem List ([place] 1, 2,3) (1) Drug-induced mood disorder Current Visit: Yes Status: Suspected (2) Nicotine dependence Current Visit: Yes Status: Acute (3) Cocaine dependence Current Visit: No Status: Acute Qualifiers: Substance use status: uncomplicated Qualified Code(s): F14.20 - Cocaine dependence, uncomplicated (4) Opioid dependence with withdrawal Current Visit: No Status: Acute (5) Weight loss Current Visit: No Status: Acute - Initial Treatment Plan Initial Treatment Plan: Observation. Detox Unit Care Protocol
[2017-09-16 09:59] LABS: HEMATOCRIT 46.5 % (35.4-49); HEMOGLOBIN 15.9 GM/dL (11.7-16.9); MCH 33.9 pg (25.7-33.7); MCHC 34.3 g/dl (32.0-35.9); MEAN CELL VOLUME 98.9 fl (80-96); MEAN PLT VOLUME 9.5 fl (7.5-11.1); PLATELET COUNT 237 K/MM3 (134-434); RDW 13.4 % (11.9-15.9); WHITE BLOOD COUNT 6.4 K/mm3 (4.0-10.0)
[2017-09-16] MEDS ORDERED: METHADONE HCL 10 MG TABLET (FOR DETOX USE ONLY) PO ONE (10:00)
[2017-09-16 10:11] LABS: ALBUMIN 3.3 g/dl (3.4-5.0); ANION GAP 4 (8-16); BLOOD UREA NITROGEN 17 mg/dL (7-18); CALCIUM 8.7 mg/dL (8.5-10.1); CHLORIDE 105 mmol/L (98-107); CO2 29 mmol/L (21-32); GLUCOSE,RANDOM 101 mg/dL (74-106); POTASSIUM 4.5 mmol/L (3.5-5.1); SODIUM 138 mmol/L (136-145)
[2017-09-16 10:15] LABS: ALK PHOS 122 U/L (45-117); BILIRUBIN,TOTAL 0.4 mg/dL (0.2-1.0); CREATININE 0.9 mg/dL (0.7-1.3); SGOT/AST 51 U/L (15-37); SGPT/ALT 68 U/L (12-78); TOT PROT 6.6 g/dl (6.4-8.2)
[2017-09-16] MEDS: TRIAMTERENE AND HCTZ - 37.5 MG/25 MG CAPSULE PO SCH (10:55)
[2017-09-16] MEDS: PRENATAL VITAMINS W/ FOLIC ACID TABLET (FP) PO SCH (10:55)
[2017-09-16] MEDS: CYCLOBENZAPRINE HCL 10 MG TABLET (FP) PO PRN ×2 (10:55→22:13)
[2017-09-16] MEDS: cloNIDine HCL 0.1 MG TABLET PO SCH ×2 (10:55→22:12)
[2017-09-16] MEDS: diazePAM 5 MG TABLET PO PRN ×2 (10:56→22:12)
[2017-09-16] MEDS: NICOTINE 21 MG/24 HOURS TOPICAL PATCH TD SCH (10:56)
--- NOTE | 2017-09-16 13:09 | PN ---
BHS COWS - Scale Resting Pulse: 1= [place] 81-100 Sweatin= Chills/Flushing Restless Observation: 3= Extraneous Movement Pupil Size: 1= Pupils >than Normal Bone or Joint Aches: 2= Severe Diffuse Aches Runny Nose/ Eye Tearin= Runny Nose/Eyes GI Upset > 30mins: 3= Vomiting/Diarrhea Tremor Observation of Outstretched Hands: 2= Slight Tremor Visible Yawning Observation: 1= 1-2x During Session Anxiety or Irritability: 2=Irritable/Anxious Goose Flesh Skin: 0=Smooth Skin COWS Score: 18 S Progress Note (SOAP) Subjective: ALERT,IRRITABLE,ANXIOUS,INTERRUPTED SLEEP,TREMOR,PAIN IN THE BODY AND BACK Objective: 09/16/17 13:06 Vital Signs Temperature 97.7 F 09/16/17 10:00 Pulse Rate 96 H 09/16/17 10:00 Respiratory Rate 20 09/16/17 10:00 Blood Pressure 156/93 09/16/17 10:00 O2 Sat by Pulse Oximetry (%) 09/16/17 13:06 EKG NSR,LVH,PROLONG QT 374/469 NO CHEST PAIN,NO SOB,NO DIZZINESS Laboratory Last Values WBC 6.4 K/mm3 (4.0-10.0) 09/16/17 07:00 RBC 4.70 M/mm3 (4.00-5.60) 09/16/17 07:00 Hgb 15.9 GM/dL (11.7-16.9) D 09/16/17 07:00 Hct 46.5 % (35.4-49) 09/16/17 07:00 MCV 98.9 fl (80-96) H 09/16/17 07:00 MCH 33.9 pg (25.7-33.7) H 09/16/17 07:00 MCHC 34.3 g/dl (32.0-35.9) 09/16/17 07:00 RDW 13.4 % (11.9-15.9) 09/16/17 07:00 Plt Count 237 K/MM3 (134-434) 09/16/17 07:00 MPV 9.5 fl (7.5-11.1) 09/16/17 07:00 Sodium 138 mmol/L (136-145) 09/16/17 07:00 Potassium 4.5 mmol/L (3.5-5.1) 09/16/17 07:00 Chloride 105 mmol/L (98-107) 09/16/17 07:00 Carbon Dioxide 29 mmol/L (21-32) 09/16/17 07:00 Anion Gap 4 (8-16) L 09/16/17 07:00 BUN 17 mg/dL (7-18) 09/16/17 07:00 Creatinine 0.9 mg/dL (0.7-1.3) D 09/16/17 07:00 Creat Clearance w eGFR > 60 (>60) 09/16/17 07:00 Random Glucose 101 mg/dL (74-106) D 09/16/17 07:00 Calcium 8.7 mg/dL (8.5-10.1) 09/16/17 07:00 Total Bilirubin 0.4 mg/dL (0.2-1.0) 09/16/17 07:00 AST 51 U/L (15-37) H 09/16/17 07:00 ALT 68 U/L (12-78) 09/16/17 07:00 Alkaline Phosphatase 122 U/L (45-117) H D 09/16/17 07:00 Total Protein 6.6 g/dl (6.4-8.2) 09/16/17 07:00 Albumin 3.3 g/dl (3.4-5.0) L 09/16/17 07:00 Urine Color Yellow 09/15/17 14:00 Urine Appearance Clear 09/15/17 14:00 Urine pH 7.0 (5.0-8.0) 09/15/17 14:00 Ur Specific [place] 1.017 (1.001-1.035) 09/15/17 14:00 Urine Protein Negative (NEGATIVE) 09/15/17 14:00 Urine Glucose (UA) Negative (NEGATIVE) 09/15/17 14:00 Urine Ketones Negative (NEGATIVE) 09/15/17 14:00 Urine Blood Negative (NEGATIVE) 09/15/17 14:00 Urine Nitrite Negative (NEGATIVE) 09/15/17 14:00 Urine Bilirubin Negative (<2.0 mg/dL) 09/15/17 14:00 Urine Urobilinogen 4.0 e.u/dl mg/dL (0.2-1.0) 09/15/17 14:00 Ur Leukocyte Esterase Negative (NEGATIVE) 09/15/17 14:00 09/16/17 13:08 RPR PENDING Assessment: 09/16/17 13:08 WITHDRAWAL SYMPTOM Plan: CONTINUE DETOX
[2017-09-16] MEDS: THIAMINE HCL 100 MG TABLET (FP) PO SCH (22:12)
[2017-09-16] MEDS: MELATONIN 5 MG TABLETS PO PRN (22:13)
[2017-09-17] MEDS ORDERED: METHADONE HCL 5 MG TABLET (FOR DETOX USE ONLY) PO ONE (10:00)
[2017-09-17] MEDS: TRIAMTERENE AND HCTZ - 37.5 MG/25 MG CAPSULE PO SCH (10:10)
[2017-09-17] MEDS: PRENATAL VITAMINS W/ FOLIC ACID TABLET (FP) PO SCH (10:10)
[2017-09-17] MEDS: cloNIDine HCL 0.1 MG TABLET PO SCH ×2 (10:10→22:13)
[2017-09-17] MEDS: NICOTINE 21 MG/24 HOURS TOPICAL PATCH TD SCH (10:11)
--- NOTE | 2017-09-17 10:46 | PN ---
BHS COWS - Scale Resting Pulse: 1= [place] 81-100 Sweatin= Chills/Flushing Restless Observation: 3= Extraneous Movement Pupil Size: 1= Pupils >than Normal Bone or Joint Aches: 2= Severe Diffuse Aches Runny Nose/ Eye Tearin= Runny Nose/Eyes GI Upset > 30mins: 2= Nausea/Diarrhea Tremor Observation of Outstretched Hands: 2= Slight Tremor Visible Yawning Observation: 2= >3x During Session Anxiety or Irritability: 2=Irritable/Anxious Goose Flesh Skin: 0=Smooth Skin COWS Score: 18 BHS Progress Note (SOAP) Subjective: ALERT,IRRITABLE,ANXIOUS,INTERRUPTED SLEEP,PAIN IN THE BODY AND BACK Objective: 09/17/17 10:42 Vital Signs Temperature 97.7 F 09/17/17 08:49 Pulse Rate 99 H 09/17/17 08:49 Respiratory Rate 16 09/17/17 08:49 Blood Pressure 143/82 09/17/17 08:49 O2 Sat by Pulse Oximetry (%) 09/17/17 10:46 Laboratory Last Values WBC 6.4 K/mm3 (4.0-10.0) 09/16/17 07:00 RBC 4.70 M/mm3 (4.00-5.60) 09/16/17 07:00 Hgb 15.9 GM/dL (11.7-16.9) D 09/16/17 07:00 Hct 46.5 % (35.4-49) 09/16/17 07:00 MCV 98.9 fl (80-96) H 09/16/17 07:00 MCH 33.9 pg (25.7-33.7) H 09/16/17 07:00 MCHC 34.3 g/dl (32.0-35.9) 09/16/17 07:00 RDW 13.4 % (11.9-15.9) 09/16/17 07:00 Plt Count 237 K/MM3 (134-434) 09/16/17 07:00 MPV 9.5 fl (7.5-11.1) 09/16/17 07:00 Sodium 138 mmol/L (136-145) 09/16/17 07:00 Potassium 4.5 mmol/L (3.5-5.1) 09/16/17 07:00 Chloride 105 mmol/L (98-107) 09/16/17 07:00 Carbon Dioxide 29 mmol/L (21-32) 09/16/17 07:00 Anion Gap 4 (8-16) L 09/16/17 07:00 BUN 17 mg/dL (7-18) 09/16/17 07:00 Creatinine 0.9 mg/dL (0.7-1.3) D 09/16/17 07:00 Creat Clearance w eGFR > 60 (>60) 09/16/17 07:00 Random Glucose 101 mg/dL (74-106) D 09/16/17 07:00 Calcium 8.7 mg/dL (8.5-10.1) 09/16/17 07:00 Total Bilirubin 0.4 mg/dL (0.2-1.0) 09/16/17 07:00 AST 51 U/L (15-37) H 09/16/17 07:00 ALT 68 U/L (12-78) 09/16/17 07:00 Alkaline Phosphatase 122 U/L (45-117) H D 09/16/17 07:00 Total Protein 6.6 g/dl (6.4-8.2) 09/16/17 07:00 Albumin 3.3 g/dl (3.4-5.0) L 09/16/17 07:00 Urine Color Yellow 09/15/17 14:00 Urine Appearance Clear 09/15/17 14:00 Urine pH 7.0 (5.0-8.0) 09/15/17 14:00 Ur Specific [place] 1.017 (1.001-1.035) 09/15/17 14:00 Urine Protein Negative (NEGATIVE) 09/15/17 14:00 Urine Glucose (UA) Negative (NEGATIVE) 09/15/17 14:00 Urine Ketones Negative (NEGATIVE) 09/15/17 14:00 Urine Blood Negative (NEGATIVE) 09/15/17 14:00 Urine Nitrite Negative (NEGATIVE) 09/15/17 14:00 Urine Bilirubin Negative (<2.0 mg/dL) 09/15/17 14:00 Urine Urobilinogen 4.0 e.u/dl mg/dL (0.2-1.0) 09/15/17 14:00 Ur Leukocyte Esterase Negative (NEGATIVE) 09/15/17 14:00 RPR Titer Nonreactive (NONREACTIVE) 09/16/17 07:00 Assessment: 09/17/17 10:43 Laboratory Last Values WBC 6.4 K/mm3 (4.0-10.0) 09/16/17 07:00 RBC 4.70 M/mm3 (4.00-5.60) 09/16/17 07:00 Hgb 15.9 GM/dL (11.7-16.9) D 09/16/17 07:00 Hct 46.5 % (35.4-49) 09/16/17 07:00 MCV 98.9 fl (80-96) H 09/16/17 07:00 MCH 33.9 pg (25.7-33.7) H 09/16/17 07:00 MCHC 34.3 g/dl (32.0-35.9) 09/16/17 07:00 RDW 13.4 % (11.9-15.9) 09/16/17 07:00 Plt Count 237 K/MM3 (134-434) 09/16/17 07:00 MPV 9.5 fl (7.5-11.1) 09/16/17 07:00 Sodium 138 mmol/L (136-145) 09/16/17 07:00 Potassium 4.5 mmol/L (3.5-5.1) 09/16/17 07:00 Chloride 105 mmol/L (98-107) 09/16/17 07:00 Carbon Dioxide 29 mmol/L (21-32) 09/16/17 07:00 Anion Gap 4 (8-16) L 09/16/17 07:00 BUN 17 mg/dL (7-18) 09/16/17 07:00 Creatinine 0.9 mg/dL (0.7-1.3) D 09/16/17 07:00 Creat Clearance w eGFR > 60 (>60) 09/16/17 07:00 Random Glucose 101 mg/dL (74-106) D 09/16/17 07:00 Calcium 8.7 mg/dL (8.5-10.1) 09/16/17 07:00 Total Bilirubin 0.4 mg/dL (0.2-1.0) 09/16/17 07:00 AST 51 U/L (15-37) H 09/16/17 07:00 ALT 68 U/L (12-78) 09/16/17 07:00 Alkaline Phosphatase 122 U/L (45-117) H D 09/16/17 07:00 Total Protein 6.6 g/dl (6.4-8.2) 09/16/17 07:00 Albumin 3.3 g/dl (3.4-5.0) L 09/16/17 07:00 Urine Color Yellow 09/15/17 14:00 Urine Appearance Clear 09/15/17 14:00 Urine pH 7.0 (5.0-8.0) 09/15/17 14:00 Ur Specific [place] 1.017 (1.001-1.035) 09/15/17 14:00 Urine Protein Negative (NEGATIVE) 09/15/17 14:00 Urine Glucose (UA) Negative (NEGATIVE) 09/15/17 14:00 Urine Ketones Negative (NEGATIVE) 09/15/17 14:00 Urine Blood Negative (NEGATIVE) 09/15/17 14:00 Urine Nitrite Negative (NEGATIVE) 09/15/17 14:00 Urine Bilirubin Negative (<2.0 mg/dL) 09/15/17 14:00 Urine Urobilinogen 4.0 e.u/dl mg/dL (0.2-1.0) 09/15/17 14:00 Ur Leukocyte Esterase Negative (NEGATIVE) 09/15/17 14:00 RPR Titer Nonreactive (NONREACTIVE) 09/16/17 07:00 09/17/17 10:46 WITHDRAWAL SYMPTOM Plan: CONTINUE DETOX
[2017-09-17] MEDS: THIAMINE HCL 100 MG TABLET (FP) PO SCH (22:13)
[2017-09-17] MEDS: MELATONIN 5 MG TABLETS PO PRN (22:13)
[2017-09-18] MEDS ORDERED: METHADONE HCL 5 MG TABLET (FOR DETOX USE ONLY) PO ONE (10:00)
[2017-09-18] MEDS: diazePAM 5 MG TABLET PO PRN (10:49)
[2017-09-18] MEDS: cloNIDine HCL 0.1 MG TABLET PO SCH ×2 (10:49→22:10)
[2017-09-18] MEDS: PRENATAL VITAMINS W/ FOLIC ACID TABLET (FP) PO SCH (10:49)
[2017-09-18] MEDS: CYCLOBENZAPRINE HCL 10 MG TABLET (FP) PO PRN ×2 (10:49→22:09)
[2017-09-18] MEDS: NICOTINE 21 MG/24 HOURS TOPICAL PATCH TD SCH (10:51)
[2017-09-18] MEDS: TRIAMTERENE AND HCTZ - 37.5 MG/25 MG CAPSULE PO SCH (10:51)
--- NOTE | 2017-09-18 12:20 | PN ---
BHS Progress Note (SOAP) Subjective: ALERT,IRRITABLE,ANXIOUS,INTERRUPTED SLEEP PAIN IN THE BODY Objective: 09/18/17 12:19 Vital Signs Temperature 97.7 F 09/18/17 10:15 Pulse Rate 104 H 09/18/17 10:15 Respiratory Rate 18 09/18/17 10:15 Blood Pressure 143/91 09/18/17 10:15 O2 Sat by Pulse Oximetry (%) Assessment: 09/18/17 12:19 WITHDRAWAL SYMPTOM Plan: CONTINUE DETOX
[2017-09-18] MEDS: THIAMINE HCL 100 MG TABLET (FP) PO SCH (22:09)
[2017-09-18] MEDS: MELATONIN 5 MG TABLETS PO PRN (22:10)
[2017-09-19] MEDS ORDERED: METHADONE HCL 10 MG TABLET (FOR DETOX USE ONLY) PO ONE (10:00)
[2017-09-19] MEDS: PRENATAL VITAMINS W/ FOLIC ACID TABLET (FP) PO SCH (10:13)
[2017-09-19] MEDS: TRIAMTERENE AND HCTZ - 37.5 MG/25 MG CAPSULE PO SCH (10:13)
[2017-09-19] MEDS: cloNIDine HCL 0.1 MG TABLET PO SCH ×2 (10:13→22:08)
[2017-09-19] MEDS: NICOTINE 21 MG/24 HOURS TOPICAL PATCH TD SCH (11:43)
--- NOTE | 2017-09-19 12:27 | PN ---
S Progress Note (SOAP) Subjective: ALERT,IRRITABLE,ANXIOUS,INTERRUPTED SLEEP Objective: 09/19/17 12:25 Vital Signs Temperature 98.2 F 09/19/17 10:14 Pulse Rate 91 H 09/19/17 10:14 Respiratory Rate 18 09/19/17 10:14 Blood Pressure 142/83 09/19/17 10:14 O2 Sat by Pulse Oximetry (%) Assessment: 09/19/17 12:26 WITHDRAWAL SYMPTOM Plan: CONTINUE DETOX,DISCHARGE IN AM
[2017-09-19] MEDS: MELATONIN 5 MG TABLETS PO PRN (22:09)
[2017-09-19] MEDS: THIAMINE HCL 100 MG TABLET (FP) PO SCH (22:09)
[2017-09-19] MEDS: CYCLOBENZAPRINE HCL 10 MG TABLET (FP) PO PRN (22:09)
[2017-09-20] MEDS ORDERED: METHADONE HCL 5 MG TABLET (FOR DETOX USE ONLY) PO ONE (06:00)
--- NOTE | 2017-09-20 08:18 | PN ---
BHS Progress Note (SOAP) Subjective: alert,no complaint Objective: 09/20/17 08:16 Vital Signs Temperature 97.2 F L 09/20/17 05:53 Pulse Rate 82 09/20/17 05:53 Respiratory Rate 18 09/20/17 05:53 Blood Pressure 137/90 09/20/17 05:53 O2 Sat by Pulse Oximetry (%) Assessment: 09/20/17 08:16 detox completed,no withdrawal symptom Plan: discharge today,follow up with after [facility] rehabilitation program as arrangement
--- NOTE | 2017-09-20 08:23 | DS ---
[facility] Detox Discharge Summary Admission Date: 09/15/17 Discharge Date: 09/20/17 - History Present History: Opioid Dependence Additional Comments: follow up with after [facility] program [facility] focus at 1000am as arrangement Pertinent Past History: hypertension hepatitis c nicotine dependence weight loss frozen shoulder kidney stone right arthritis - Physical Exam Results Vital Signs: Vital Signs Temperature 97.2 F L 09/20/17 05:53 Pulse Rate 82 09/20/17 05:53 Respiratory Rate 18 09/20/17 05:53 Blood Pressure 137/90 09/20/17 05:53 O2 Sat by Pulse Oximetry (%) Pertinent Admission Physical Exam Findings: withdrawal signs and symptom Vital Signs Temperature 97.2 F L 09/20/17 05:53 Pulse Rate 82 09/20/17 05:53 Respiratory Rate 18 09/20/17 05:53 Blood Pressure 137/90 09/20/17 05:53 O2 Sat by Pulse Oximetry (%) Laboratory Last Values WBC 6.4 K/mm3 (4.0-10.0) 09/16/17 07:00 RBC 4.70 M/mm3 (4.00-5.60) 09/16/17 07:00 Hgb 15.9 GM/dL (11.7-16.9) D 09/16/17 07:00 Hct 46.5 % (35.4-49) 09/16/17 07:00 MCV 98.9 fl (80-96) H 09/16/17 07:00 MCH 33.9 pg (25.7-33.7) H 09/16/17 07:00 MCHC 34.3 g/dl (32.0-35.9) 09/16/17 07:00 RDW 13.4 % (11.9-15.9) 09/16/17 07:00 Plt Count 237 K/MM3 (134-434) 09/16/17 07:00 MPV 9.5 fl (7.5-11.1) 09/16/17 07:00 Sodium 138 mmol/L (136-145) 09/16/17 07:00 Potassium 4.5 mmol/L (3.5-5.1) 09/16/17 07:00 Chloride 105 mmol/L (98-107) 09/16/17 07:00 Carbon Dioxide 29 mmol/L (21-32) 09/16/17 07:00 Anion Gap 4 (8-16) L 09/16/17 07:00 BUN 17 mg/dL (7-18) 09/16/17 07:00 Creatinine 0.9 mg/dL (0.7-1.3) D 09/16/17 07:00 Creat Clearance w eGFR > 60 (>60) 09/16/17 07:00 Random Glucose 101 mg/dL (74-106) D 09/16/17 07:00 Calcium 8.7 mg/dL (8.5-10.1) 09/16/17 07:00 Total Bilirubin 0.4 mg/dL (0.2-1.0) 09/16/17 07:00 AST 51 U/L (15-37) H 09/16/17 07:00 ALT 68 U/L (12-78) 09/16/17 07:00 Alkaline Phosphatase 122 U/L (45-117) H D 09/16/17 07:00 Total Protein 6.6 g/dl (6.4-8.2) 09/16/17 07:00 Albumin 3.3 g/dl (3.4-5.0) L 09/16/17 07:00 Urine Color Yellow 09/15/17 14:00 Urine Appearance Clear 09/15/17 14:00 Urine pH 7.0 (5.0-8.0) 09/15/17 14:00 Ur Specific [place] 1.017 (1.001-1.035) 09/15/17 14:00 Urine Protein Negative (NEGATIVE) 09/15/17 14:00 Urine Glucose (UA) Negative (NEGATIVE) 09/15/17 14:00 Urine Ketones Negative (NEGATIVE) 09/15/17 14:00 Urine Blood Negative (NEGATIVE) 09/15/17 14:00 Urine Nitrite Negative (NEGATIVE) 09/15/17 14:00 Urine Bilirubin Negative (<2.0 mg/dL) 09/15/17 14:00 Urine Urobilinogen 4.0 e.u/dl mg/dL (0.2-1.0) 09/15/17 14:00 Ur Leukocyte Esterase Negative (NEGATIVE) 09/15/17 14:00 RPR Titer Nonreactive (NONREACTIVE) 09/16/17 07:00 - Treatment Hospital Course: Detox Protocol Followed, Detoxed Safely, Responded well, Discharged Condition Good Patient has Accepted a Rehab Referral to: declined - Medication Discharge Medications: Ambulatory Orders NK [No Known Home Medication] 05/07/17 - Diagnosis (1) Opioid dependence with withdrawal Current Visit: No Status: Acute (2) Nicotine dependence Current Visit: No Status: Acute (3) Weight loss Current Visit: No Status: Acute (4) Hypertension Current Visit: No Status: Chronic Qualifiers: Hypertension type: essential hypertension Qualified Code(s): I10 - Essential (primary) hypertension (5) Hepatitis C Current Visit: Yes Status: Acute (6) Nicotine dependence Current Visit: Yes Status: Acute (7) Frozen shoulder Current Visit: Yes Status: Acute (8) Kidney stone on right side Current Visit: Yes Status: Acute (9) Arthritis Current Visit: Yes Status: Acute (10) Insomnia secondary to depression with anxiety Current Visit: Yes Status: Acute - AMA Did Patient Leave Against Medical Advice: No
[2017-09-20 09:48] VITALS: BP 150/86; PULSE 104; TEMP 98.1
== END 2017-09-20 09:14 | disposition home or self-care (01) | DRG 773 ==
LOC: YASAS 11:59 → Y6N 14:18
PROVIDERS: ADMIT Internal Medicine; ATTEND Internal Medicine
PROC: HZ2ZZZZ Detoxification Services for Substance Abuse Treatment (ICD-10-PCS; principal; 2017-09-15)
DX: F11.23 Opioid dependence with withdrawal (principal); F17.210 Nicotine dependence, cigarettes, uncomplicated; F51.05 Insomnia due to other mental disorder; F19.24 Other psychoactive substance dependence with psychoactive substance-induced mood disorder; I10 Essential (primary) hypertension; B18.2 Chronic viral hepatitis C; M12.9 Arthropathy, unspecified; N20.0 Calculus of kidney; R76.11 Nonspecific reaction to tuberculin skin test without active tuberculosis; R63.4 Abnormal weight loss; Z68.28 Body mass index [BMI] 28.0-28.9, adult; Z59.0 Homelessness
CPT/HCPCS: 36415; 80053; 81003; 85027; 86593; 93005; 93010; J0735

== ENCOUNTER 2018-01-28 12:00 | Inpatient (IN) | payer OTHER ==
[2018-01-28 12:38] VITALS: BMI 28.2
--- NOTE | 2018-01-28 15:49 | HP ---
COWS - Scale Resting Pulse: 0= [place] 80 or Below Sweatin=Flushed/Facial Moisture Restless Observation: 1= Difficult to Sit Still Pupil Size: 0= Normal to Room Light Bone or Joint Aches: 2= Severe Diffuse Aches Runny Nose/ Eye Tearin= Nasal Congestion GI Upset > 30mins: 2= Nausea/Diarrhea Tremor Observation: 2= Slight Tremor Visible Yawning Observation: 0= None Anxiety or Irritability: 2=Irritable/Anxious Goose Flesh Skin: 0=Smooth Skin COWS Score: 12 Admission ROS S - HPI Chief Complaint: PATIENT PRESENT FROM DETOX FROM OPIODS. HAS PMH HTN AND HEP C (UNTREATED) PATIENT STATE HE HAS BEEN SNIFFING HEROIN X 40 YEARS. SNIFFS UP TO 7 BAGS DAILY. LAST TIME HE SNIFFED HEROIN WAS LAST NIGHT. DENIES HX OF OVERDOSE. LAST DETOX HERE AT [facility] 10/2017. LONGEST PERIOD OF SOBRIETY 1 YEAR. PATIENT DENIES SI AND HI. Allergies/Adverse Reactions: Allergies Allergy/AdvReac Type Severity Reaction Status Date / Time No Known Allergies Allergy Verified 01/28/18 14:37 Exam Limitations: No Limitations - Ebola screening Have you traveled outside of the country in the last 21 days: No Have you had contact with anyone from an Ebola affected area: No Have you been sick,other than usual withdrawal symptoms: No Do you have a fever: No - Review of Systems Constitutional: Chills, Night Sweats, Changes in sleep EENT: reports: Tearing, Nose Congestion Respiratory: reports: No Symptoms reported Cardiac: reports: No Symptoms Reported GI: reports: Diarrhea, Nausea, Poor Fluid Intake, Abdominal cramping : reports: No Symptoms Reported Musculoskeletal: reports: Back Pain, Joint Pain, Muscle Pain Integumentary: reports: Sweating Neuro: reports: Tremors Endocrine: reports: No Symptoms Reported Hematology: reports: No Symptoms Reported Psychiatric: reports: Orientated x3, Anxious, Depressed Patient History - Patient Medical History Hx Anemia: No Hx Asthma: No Hx Chronic Obstructive Pulmonary Disease (COPD): No Hx Cancer: No Hx Cardiac Disorders: No Hx Congestive Heart Failure: No Hx Hypertension: Yes Hx Hypercholesterolemia: No Hx Pacemaker: No HX Cerebrovascular Accident: No Hx Seizures: No Hx Dementia: No Hx Diabetes: No Hx Gastrointestinal Disorders: No Hx Liver Disease: No Hx Genitourinary Disorders: No Hx Sexually Transmitted Disorders: No Hx Renal Disease (ESRD): No Hx Thyroid Disease: No Hx Human Immunodeficiency Virus (HIV): No (Negative 2016) Hx Hepatitis C: Yes (Not on medication) Hx Depression: No Hx Suicide Attempt: No Hx Bipolar Disorder: No Hx Schizophrenia: No - Patient Surgical History Past Surgical History: Yes Hx Neurologic Surgery: No Hx Cataract Extraction: No Hx Cardiac Surgery: No Hx Lung Surgery: No Hx Breast Surgery: No Hx Breast Biopsy: No Hx Abdominal Surgery: Yes (L INGUINAL HERNIA REPAIR in 2013) Hx Appendectomy: No Hx Cholecystectomy: No Hx Genitourinary Surgery: No Hx Section: No Hx Orthopedic Surgery: No Anesthesia Reaction: No - PPD History Previous Implant?: Yes Documented Results: Positive w/o proof Implanted On Prior R Admission?: No - Smoking Cessation Smoking history: Current every day smoker Have you smoked in the past 12 months: Yes Aproximately how many cigarettes per day: 10 Hx Chewing Tobacco Use: No Initiated information on smoking cessation: Yes 'Breaking Loose' booklet given: 01/28/18 - Substances Abused Heroin Route: Inhalation Frequency: Daily Amount used: 4-5 bags Age of first use: 21 Date of Last Use: 01/27/18 Marijuana Route: Smoking Frequency: 1-2 times per week Amount used: $10 Age of first use: 18 Date of Last Use: 01/21/18 Family Disease History - Family Disease History Family Disease History: Heart Disease: Father () Admission Physical Exam BHS - Vital Signs Vital Signs: Vital Signs - 24 hr 01/28/18 12:36 Temperature 99.1 F Pulse Rate 64 Respiratory 18 Rate Blood Pressure 145/89 - Physical General Appearance: Yes: Tremorous, Sweating, Anxious HEENTM: Yes: EOMI, Hearing grossly Normal, Normocephalic, Normal Voice, HOLLI, Pharynx Normal, Nasal Congestion Respiratory: Yes: Chest Non-Tender, Lungs Clear, Normal Breath Sounds, No Respiratory Distress, No Accessory Muscle Use Neck: Yes: No masses,lesions,Nodules, Supple Breast: Yes: Breast Exam Deferred Cardiology: Yes: Regular Rhythm, Regular Rate, S1, S2 Abdominal: Yes: Normal Bowel Sounds, Non Tender, Soft Genitourinary: Yes: Within Normal Limits Back: Yes: Muscle Spasm Musculoskeletal: Yes: full range of Motion, Gait Steady, Back pain, Muscle Pain Extremities: Yes: Normal Inspection, Normal Range of Motion, Non-Tender, Tremors 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 NML intact, Fully Oriented, Alert, Motor Strength 5/5, Depressed Affect Integumentary: Yes: Normal Color, Warm, Moist Lymphatic: Yes: Within Normal Limits - Diagnostic (1) Nicotine dependence Current Visit: Yes Status: Chronic Qualifiers: Substance use status: uncomplicated (2) Hypertension Current Visit: Yes Status: Chronic Qualifiers: Hypertension type: essential hypertension Qualified Code(s): I10 - Essential (primary) hypertension (3) Opioid dependence with withdrawal Current Visit: Yes Status: Acute (4) Hepatitis C Current Visit: Yes Status: Chronic Qualifiers: Viral hepatitis chronicity: unspecified [facility] Level of Care: Medically Managed Detox Regimen/Protocol: Methadone [facility] Breath Alcohol Content Breath Alcohol Content: 0 Urine Drug Screen - Results Drug Screen Negative: No Urine Drug Screen Results: THC-Marijuana, OPI-Opiates
[2018-01-28] MEDS ORDERED: guaiFENesin/D-METHORPHAN HB 10 ML UNIT-DOSE CUPS PO PRN (16:11)
[2018-01-28] MEDS ORDERED: LOPERAMIDE HCL 2 MG CAPSULE PO PRN (16:11)
[2018-01-28] MEDS ORDERED: MAG HYDROX/AL HYDROX/SIMETH 30 ML UNIT-DOSE CUP PO PRN (16:11)
[2018-01-28] MEDS ORDERED: hydrOXYzine PAMOATE 25 MG CAPSULE (FP) PO PRN (16:11)
[2018-01-28] MEDS ORDERED: MAGNESIUM HYDROX 2400MG/30ML ORAL SUSPENSION 30 ML CUP PO PRN (16:11)
[2018-01-28] MEDS ORDERED: NICOTINE POLACRILEX 2 MG GUM BC PRN (16:11)
[2018-01-28] MEDS ORDERED: MENTHOL/PHENOL 1 EACH UD MM PRN (16:11)
[2018-01-28] MEDS ORDERED: ACETAMINOPHEN 325 MG TABLET (FP) PO PRN (16:11)
[2018-01-28] MEDS ORDERED: MAGNESIUM CITRATE 300 ML BOTTLE PO PRN (16:11)
[2018-01-28] MEDS ORDERED: P-EPHED 60MG/TRIPROLIDI 2.5MG TABLET PO PRN (16:11)
[2018-01-28] MEDS ORDERED: METHADONE HCL 10 MG TABLET (FOR DETOX USE ONLY) PO ONE ×2 (16:45→23:00)
[2018-01-28] MEDS: diazePAM 5 MG TABLET PO PRN (18:11)
[2018-01-28] MEDS ORDERED: MELATONIN 5 MG TABLETS PO PRN (22:00)
[2018-01-28] MEDS: THIAMINE HCL 100 MG TABLET (FP) PO SCH (22:12)
[2018-01-29 02:14] LABS: URINE APPEARANCE CLEAR; URINE BILIRUBIN NEGATIVE (<2.0 mg/dL); URINE COLOR YELLOW; URINE GLUCOSE (UA) NEGATIVE (NEGATIVE); URINE KETONE TRACE (NEGATIVE); URINE LEUK ESTERASE NEGATIVE (NEGATIVE); URINE NITRITE NEGATIVE (NEGATIVE); URINE PROTEIN NEGATIVE (NEGATIVE); URINE UROBILINOGEN NEGATIVE mg/dL (0.2-1.0)
[2018-01-29] MEDS: diazePAM 5 MG TABLET PO PRN ×3 (06:15→22:03)
[2018-01-29] MEDS ORDERED: cloNIDine HCL 0.1 MG TABLET PO ONE ×2 (06:33→23:51)
--- NOTE | 2018-01-29 06:35 | PN ---
[facility] Progress Note Note: Patient's blood pressure is B/P 167/98. Patient is asymptomatic Vital Signs Temperature 97.7 F 01/29/18 06:30 Pulse Rate 77 01/29/18 06:30 Respiratory Rate 18 01/29/18 06:30 Blood Pressure 167/98 01/29/18 06:30 O2 Sat by Pulse Oximetry (%) ACTION: Clonidine 0.1mg tablet oral ordered.
[2018-01-29] MEDS ORDERED: METHADONE HCL 10 MG TABLET (FOR DETOX USE ONLY) PO ONE (10:00)
[2018-01-29 10:03] LABS: HEMATOCRIT 45.6 % (35.4-49); MCH 32.6 pg (25.7-33.7); MCHC 32.9 g/dl (32.0-35.9); MEAN CELL VOLUME 99.1 fl (80-96); MEAN PLT VOLUME 9.4 fl (7.5-11.1); PLATELET COUNT 229 K/MM3 (134-434); RBC 4.61 M/mm3 (4.00-5.60); RDW 13.9 % (11.9-15.9); WHITE BLOOD COUNT 5.9 K/mm3 (4.0-10.0)
[2018-01-29] MEDS: NICOTINE 21 MG/24 HOURS TOPICAL PATCH TD SCH (10:41)
[2018-01-29] MEDS: PRENATAL VITAMINS W/ FOLIC ACID TABLET (FP) PO SCH (10:41)
[2018-01-29 10:52] LABS: ALBUMIN 3.3 g/dl (3.4-5.0); ALK PHOS 106 U/L (45-117); ANION GAP 10 MMOL/L (8-16); BILIRUBIN,TOTAL 0.4 mg/dL (0.2-1); BLOOD UREA NITROGEN 12 mg/dL (7-18); CALCIUM 9.1 mg/dL (8.5-10.1); CHLORIDE 105 mmol/L (98-107); CO2 26 mmol/L (21-32); CREATININE 0.6 mg/dL (0.55-1.3); GLUCOSE,RANDOM 86 mg/dL (74-106); POTASSIUM 4.4 mmol/L (3.5-5.1); SGOT/AST 54 U/L (15-37); SGPT/ALT 60 U/L (13-61); SODIUM 141 mmol/L (136-145); TOT PROT 6.8 g/dl (6.4-8.2)
--- NOTE | 2018-01-29 11:44 | EKG ---
Test Reason : Blood Pressure : / mmHG Vent. Rate : 083 BPM Atrial Rate : 083 BPM P-R Int : 148 ms QRS Dur : 094 ms QT Int : 378 ms P-R-T Axes : 066 028 034 degrees QTc Int : 444 ms POOR DATA QUALITY, INTERPRETATION MAY BE ADVERSELY AFFECTED NORMAL SINUS RHYTHM VOLTAGE CRITERIA FOR LEFT VENTRICULAR HYPERTROPHY NONSPECIFIC T WAVE ABNORMALITY ABNORMAL ECG WHEN COMPARED WITH ECG OF 08-NOV-2017 23:21, NO SIGNIFICANT CHANGE WAS FOUND Confirmed by JUVE DELGADILLO MD ([id number]) on 01/29/2018 11:44:14 AM Referred By: Confirmed By:JUVE DELGADILLO MD
--- NOTE | 2018-01-29 14:10 | CONSULT ---
[facility] Psychiatric Consult - Data Date of interview: 01/29/18 Admission source: [facility] Identifying data: This is one of multiple admissions to [facility] for this 57 y/ o male self-referred for detoxification treatment (alcohol,heroin, cannabis).Admitted to [address] [place] [address].patient is single,a father of seven,domiciled, unemployed and deprived of income. Substance Abuse History: Confirmed by the patient in this interview.Details in current [facility] report : Smoking history: Current every day smoker. Have you smoked in the past 12 months: Yes. Aproximately how many cigarettes per day: 10. Hx Chewing Tobacco Use: No. Initiated information on smoking cessation: Yes. 'Breaking Loose' booklet given: 01/28/18. - Substances Abused. Heroin. Route: Inhalation. Frequency: Daily. Amount used: 4-5 bags. Age of first use: 21. Date of Last Use: 01/27/18. Marijuana. Route: Smoking. Frequency: 1-2 times per week. Amount used: $10. Age of first use: 18. Date of Last Use: 01/21/18 Medical History: Hypertension,arthritis and a history of left inguinal herniorraphy. Psychiatric History: Patient denies. Physical/Sexual Abuse/Trauma History: Patient denies. Additional Comment: Urine Drug Screen Results: THC-Marijuana, OPI-Opiates.Noted. Mental Status Exam - Mental Status Exam Alert and Oriented to: Time, Place, Person Cognitive Function: Good Patient Appearance: Well Groomed (tattoos : chest,upper extremities) Mood: Withdrawn, Anxious, Hopeful Affect: Appropriate, Normal Range Patient Behavior: Appropriate, Cooperative Speech Pattern: Clear Voice Loudness: Normal Thought Process: Intact, Goal Oriented Thought Disorder: Not Present Hallucinations: Denies Suicidal Ideation: Denies Homicidal Ideation: Denies Insight/Judgement: Poor Sleep: Poorly, Difficulty falling asleep Appetite: Good Muscle strength/Tone: Normal Gait/Station: Normal Psychiatric Findings - Problem List ([place] 1, 2,3) (1) Opioid dependence with withdrawal Current Visit: Yes Status: Acute (2) Nicotine dependence Current Visit: Yes Status: Acute Qualifiers: Substance use status: uncomplicated (3) Cannabis dependence Current Visit: Yes Status: Acute (4) Insomnia Current Visit: Yes Status: Acute - Initial Treatment Plan Initial Treatment Plan: Psychoeducation.Detoxification.Group and supportive therapy.Ambien 5 mg po hs prn.Side effects/benefits discussed with patient.Mr Prieto agrees to this careplan.Observation.
--- NOTE | 2018-01-29 21:27 | PN ---
[facility] COWS - Scale Resting Pulse: 0= [place] 80 or Below Sweatin= Chills/Flushing Restless Observation: 0= Sits Still Pupil Size: 0= Normal to Room Light Bone or Joint Aches: 1= Mild Discomfort Runny Nose/ Eye Tearin= None GI Upset > 30mins: 0= None Tremor Observation of Outstretched Hands: 0= None Yawning Observation: 0= None Anxiety or Irritability: 0= None Goose Flesh Skin: 0=Smooth Skin COWS Score: 2 BHS Progress Note (SOAP) Subjective: PATIENT C/O MILD BODY ACHES AND CHILLS. Objective: 01/29/18 21:29 Laboratory Tests 01/28/18 01/29/18 01/29/18 20:08 07:30 07:30 WBC 5.9 RBC 4.61 Hgb 15.0 Hct 45.6 MCV 99.1 H MCH 32.6 MCHC 32.9 RDW 13.9 Plt Count 229 MPV 9.4 Sodium 141 Potassium 4.4 Chloride 105 Carbon Dioxide 26 Anion Gap 10 BUN 12 Creatinine 0.6 Creat Clearance w eGFR > 60 Random Glucose 86 Calcium 9.1 Total Bilirubin 0.4 AST 54 H ALT 60 Alkaline Phosphatase 106 Total Protein 6.8 Albumin 3.3 L Urine Color Yellow Urine Appearance Clear Urine pH 7.0 Ur Specific [place] 1.006 Urine Protein Negative Urine Glucose (UA) Negative Urine Ketones Trace H Urine Blood Negative Urine Nitrite Negative Urine Bilirubin Negative Urine Urobilinogen Negative Ur Leukocyte Esterase Negative RPR Titer 01/29/18 07:30 WBC RBC Hgb Hct MCV MCH MCHC RDW Plt Count MPV Sodium Potassium Chloride Carbon Dioxide Anion Gap BUN Creatinine Creat Clearance w eGFR Random Glucose Calcium Total Bilirubin AST ALT Alkaline Phosphatase Total Protein Albumin Urine Color Urine Appearance Urine pH Ur Specific [place] Urine Protein Urine Glucose (UA) Urine Ketones Urine Blood Urine Nitrite Urine Bilirubin Urine Urobilinogen Ur Leukocyte Esterase RPR Titer Nonreactive Vital Signs (72 hours) 01/28/18 01/28/18 01/28/18 12:36 18:29 22:00 Temperature 99.1 F 98.5 F 98.0 F Pulse Rate 64 84 114 H Respiratory 18 18 18 Rate Blood Pressure 145/89 178/107 H 145/92 01/29/18 01/29/18 01/29/18 00:30 03:30 06:30 Temperature 97.7 F Pulse Rate 77 Respiratory 18 18 18 Rate Blood Pressure 167/98 01/29/18 01/29/18 01/29/18 09:21 14:29 17:15 Temperature 98.2 F 95.8 F L 97.6 F Pulse Rate 93 H 76 74 Respiratory 18 18 18 Rate Blood Pressure 157/95 106/84 146/80 PE: SKIN WARM AND DRY ALERT AND ORIENTED CAR S1S2 RESP CTA BL EXT NO EDEMA, FULL ROM Assessment: 01/29/18 21:31 WITHDRWAL SYNDROME ELEVATED BP Plan: CONTINUE DETOX PER PROTOCOL LOW NA DIET ENCOURAGE ORAL FLUIDS CLONIDINE 0.1MG PO ONCE CONTINUE TO MONITOR CLINICALLY
[2018-01-29] MEDS: THIAMINE HCL 100 MG TABLET (FP) PO SCH (22:03)
[2018-01-29] MEDS: ZOLPIDEM TARTRATE 5 MG TABLET PO PRN (22:03)
[2018-01-30] MEDS: IBUPROFEN 400 MG TABLET (FP) PO PRN (05:29)
[2018-01-30] MEDS: diazePAM 5 MG TABLET PO PRN ×2 (05:29→22:12)
[2018-01-30] MEDS ORDERED: cloNIDine HCL 0.1 MG TABLET PO ONE (06:47)
[2018-01-30] MEDS ORDERED: METHADONE HCL 5 MG TABLET (FOR DETOX USE ONLY) PO ONE (10:00)
[2018-01-30] MEDS ORDERED: TRIAMTERENE AND HCTZ - 37.5 MG/25 MG CAPSULE PO SCH (10:00)
[2018-01-30] MEDS: NICOTINE 21 MG/24 HOURS TOPICAL PATCH TD SCH (10:36)
[2018-01-30] MEDS: PRENATAL VITAMINS W/ FOLIC ACID TABLET (FP) PO SCH (10:36)
--- NOTE | 2018-01-30 11:59 | PN ---
[facility] COWS - Scale Resting Pulse: 1= [place] 81-100 Sweatin= No chills or Flushing Restless Observation: 0= Sits Still Pupil Size: 0= Normal to Room Light Bone or Joint Aches: 0= None Runny Nose/ Eye Tearin= None GI Upset > 30mins: 0= None Tremor Observation of Outstretched Hands: 0= None Yawning Observation: 0= None Anxiety or Irritability: 0= None Goose Flesh Skin: 0=Smooth Skin COWS Score: 1 BHS Progress Note (SOAP) Subjective: Patient tolerating detox well. Alert and oriented x 3. In NAD. Objective: 01/30/18 11:58 Vital Signs Temperature 96.2 F L 01/30/18 09:21 Pulse Rate 71 01/30/18 09:21 Respiratory Rate 16 01/30/18 09:21 Blood Pressure 154/77 01/30/18 09:21 O2 Sat by Pulse Oximetry (%) Laboratory Tests 01/28/18 01/29/18 01/29/18 20:08 07:30 07:30 WBC 5.9 RBC 4.61 Hgb 15.0 Hct 45.6 MCV 99.1 H MCH 32.6 MCHC 32.9 RDW 13.9 Plt Count 229 MPV 9.4 Sodium 141 Potassium 4.4 Chloride 105 Carbon Dioxide 26 Anion Gap 10 BUN 12 Creatinine 0.6 Creat Clearance w eGFR > 60 Random Glucose 86 Calcium 9.1 Total Bilirubin 0.4 AST 54 H ALT 60 Alkaline Phosphatase 106 Total Protein 6.8 Albumin 3.3 L Urine Color Yellow Urine Appearance Clear Urine pH 7.0 Ur Specific [place] 1.006 Urine Protein Negative Urine Glucose (UA) Negative Urine Ketones Trace H Urine Blood Negative Urine Nitrite Negative Urine Bilirubin Negative Urine Urobilinogen Negative Ur Leukocyte Esterase Negative RPR Titer 01/29/18 07:30 WBC RBC Hgb Hct MCV MCH MCHC RDW Plt Count MPV Sodium Potassium Chloride Carbon Dioxide Anion Gap BUN Creatinine Creat Clearance w eGFR Random Glucose Calcium Total Bilirubin AST ALT Alkaline Phosphatase Total Protein Albumin Urine Color Urine Appearance Urine pH Ur Specific [place] Urine Protein Urine Glucose (UA) Urine Ketones Urine Blood Urine Nitrite Urine Bilirubin Urine Urobilinogen Ur Leukocyte Esterase RPR Titer Nonreactive PE: alert and oriented x 3 skin warm and dry car s1s2 resp cta bl ext no edema, full rom Assessment: 01/30/18 11:58 withdrawal syndrome Plan: continue detox continue low NA diet oral fluids encouraged continue to monitor clinically
[2018-01-30] MEDS: ZOLPIDEM TARTRATE 5 MG TABLET PO PRN (22:10)
[2018-01-30] MEDS: THIAMINE HCL 100 MG TABLET (FP) PO SCH (22:10)
[2018-01-31] MEDS: IBUPROFEN 400 MG TABLET (FP) PO PRN (06:12)
[2018-01-31 09:20] VITALS: BP 150/90; PULSE 109; TEMP 97
[2018-01-31] MEDS ORDERED: METHADONE HCL 5 MG TABLET (FOR DETOX USE ONLY) PO ONE (10:00)
--- NOTE | 2018-01-31 13:07 | PN ---
[facility] Progress Note Note: NOTIFIED BY RN PATIENT REQUESTED TO SIGN OUT AMA. PATIENT STATED " I DON'T LIKE IT HERE. FOOD IS TERRIBLE. I GOT TO LEAVE". PATIENT ALERT AND ORIENTED X 3. AMBULATORY AD MARIANELA. MEDICALLY STABLE. DENIES SI/HI, CHEST PAIN, SOB AND DIZZINESS. PATIENT ENCOURAGED TO ATTEND GROUP MEETINGS TO PREVENT RELAPSE. ENCOURAGED TO OBTAIN PCP SERVICES FOR BP MANAGEMENT. PATIENT ENCOURAGED TO GO TO ER IF CHEST PAIN, SOB, DIZZINESS AND WITHDRAWAL SYMPTOMS OCCUR.
[2018-02-01] MEDS ORDERED: METHADONE HCL 10 MG TABLET (FOR DETOX USE ONLY) PO ONE (10:00)
[2018-02-02] MEDS ORDERED: METHADONE HCL 5 MG TABLET (FOR DETOX USE ONLY) PO ONE (06:00)
== END 2018-01-31 09:00 | disposition left against medical advice (07) | DRG 770 ==
LOC: YASAS 12:00 → Y3N 16:32
PROC: HZ2ZZZZ Detoxification Services for Substance Abuse Treatment (ICD-10-PCS; principal; 2018-01-28)
DX: F11.23 Opioid dependence with withdrawal (principal); F12.20 Cannabis dependence, uncomplicated; F17.210 Nicotine dependence, cigarettes, uncomplicated; I10 Essential (primary) hypertension; G47.00 Insomnia, unspecified; B18.2 Chronic viral hepatitis C
CPT/HCPCS: 36415; 80053; 81003; 85027; 86593; 93005; 93010; J0735

== ENCOUNTER 2020-03-16 10:26 | Inpatient (IN) | payer OTHER ==
[2020-03-16] MEDS ORDERED: amLODIPine BESYLATE 10 MG TABLET (FP) PO ONE (11:06)
[2020-03-16] MEDS ORDERED: amLODIPine BESYLATE 5 MG TABLET (FP) ONE (11:31)
[2020-03-16 11:47] LABS: BASO % 0.4 % (0-2.0); EOS % 0.6 % (0-4.5); HEMATOCRIT 42.5 % (35.4-49); HEMOGLOBIN 14.2 GM/dL (11.7-16.9); MCH 32.7 pg (25.7-33.7); MCHC 33.3 g/dl (32.0-35.9); MEAN PLT VOLUME 8.6 fl (7.5-11.1); MONO % 7.2 % (3.8-10.2); NEUT % 74.8 % (42.8-82.8); PLATELET COUNT 258 K/MM3 (134-434); RBC 4.34 M/mm3 (4.00-5.60); RDW 13.2 % (11.9-15.9); WHITE BLOOD COUNT 5.9 K/mm3 (4.0-10.0)
[2020-03-16 11:56] LABS: INR 0.99 (0.83-1.09); PROTHROMBIN TIME (PATIENT) 12.2 SEC (9.7-13.0)
[2020-03-16 11:58] LABS: POTASSIUM 4.1 mmol/L (3.5-5.1)
[2020-03-16 12:01] LABS: ALBUMIN 3.4 g/dl (3.4-5.0); CALCIUM 8.9 mg/dL (8.5-10.1)
[2020-03-16 12:02] LABS: BLOOD UREA NITROGEN 9.7 mg/dL (7-18)
[2020-03-16 12:05] LABS: CREATININE 0.7 mg/dL (0.55-1.3)
[2020-03-16 12:06] LABS: TOT PROT 6.8 g/dl (6.4-8.2)
[2020-03-16] MEDS ORDERED: hydrALAZINE HCL 25 MG TABLET (FP) PO ONE (15:05)
[2020-03-16] MEDS ORDERED: hydrALAZINE HCL 25 MG TABLET (FP) ONE (15:20)
[2020-03-16] MEDS ORDERED: morphine CARPU-JECT 4 MG/1 ML DISP.SYRIN IVPUSH ONE (15:23)
[2020-03-16] MEDS ORDERED: morphine SULFATE 4 MG/ML VIAL ONE (15:34)
[2020-03-16] MEDS ORDERED: ACETAMINOPHEN 1000 MG/100 ML VIAL (NON FORMULARY) IVPB PRN (18:39)
[2020-03-16] MEDS ORDERED: oxyCODONE HCL 5 MG TABLET ONE (22:00)
[2020-03-16] MEDS: oxyCODONE HCL 5 MG TABLET PO PRN (22:11)
[2020-03-16] MEDS ORDERED: MELATONIN 5 MG TABLETS PO ONE (22:13)
[2020-03-16 22:21] LABS: PH,URINE 8.5 (5.0-8.0); URINE APPEARANCE CLEAR; URINE BILIRUBIN NEGATIVE (NEGATIVE); URINE COLOR YELLOW; URINE GLUCOSE (UA) NEGATIVE (NEGATIVE); URINE KETONE NEGATIVE (NEGATIVE); URINE LEUK ESTERASE NEGATIVE (NEGATIVE); URINE NITRITE NEGATIVE (NEGATIVE); URINE PROTEIN NEGATIVE (NEGATIVE); URINE UROBILINOGEN 4.0 E.U/dl mg/dL (0.2-1.0)
[2020-03-17] MEDS: ATORVASTATIN CA 40 MG TABLET (FP) PO SCH ×2 (00:11→21:17)
[2020-03-17 00:23] VITALS: BMI 27.1
[2020-03-17] MEDS ORDERED: LISINOPRIL 5 MG TABLET PO ONE (02:14)
[2020-03-17] MEDS: oxyCODONE HCL 5 MG TABLET PO PRN ×3 (04:16→20:33)
[2020-03-17] MEDS ORDERED: amLODIPine BESYLATE 10 MG TABLET (FP) PO ONE (04:32)
[2020-03-17] MEDS ORDERED: PT OWN MED DRAWER 7, Y5N ONE (04:37)
[2020-03-17 05:00] LABS: PHENCYCLIDINE,URINE NEGATIVE ng/ml (CUTOFF=25); URINE BARBITURATES NEGATIVE ng/ml (CUTOFF=200)
[2020-03-17 05:01] LABS: COCAINE, UR NEGATIVE ng/ml (CUTOFF=300); METHADONE, UR NEGATIVE ng/ml (CUTOFF=300); URINE BENZODIAZEPINES NEGATIVE ng/ml (CUTOFF=200)
[2020-03-17 05:12] LABS: URINE AMPHETAMINES NEGATIVE ng/ml (CUTOFF=500)
[2020-03-17 05:13] LABS: OPIATES, URI POSITIVE ng/ml (CUTOFF=300)
[2020-03-17] MEDS ORDERED: METOPROLOL TARTRATE 5 MG/5 ML VIAL IVPUSH ONE (05:44)
[2020-03-17] MEDS ORDERED: METOPROLOL TARTRATE 5 MG/5 ML VIAL IVPB ONE (05:55)
[2020-03-17 08:28] LABS: BASO % 1.2 % (0-2.0); EOS % 2.4 % (0-4.5); HEMATOCRIT 45.4 % (35.4-49); HEMOGLOBIN 15.2 GM/dL (11.7-16.9); LYMPH % 21.2 % (8-40); MCH 33.3 pg (25.7-33.7); MCHC 33.5 g/dl (32.0-35.9); MEAN CELL VOLUME 99.3 fl (80-96); MEAN PLT VOLUME 9.1 fl (7.5-11.1); NEUT % 67.2 % (42.8-82.8); PLATELET COUNT 274 K/MM3 (134-434); RBC 4.57 M/mm3 (4.00-5.60); RDW 13.4 % (11.9-15.9); WHITE BLOOD COUNT 7.1 K/mm3 (4.0-10.0)
[2020-03-17 08:46] LABS: POTASSIUM 3.9 mmol/L (3.5-5.1)
[2020-03-17 08:52] LABS: CALCIUM 8.7 mg/dL (8.5-10.1)
[2020-03-17 08:53] LABS: ALBUMIN 3.1 g/dl (3.4-5.0); BLOOD UREA NITROGEN 9.2 mg/dL (7-18)
[2020-03-17 08:56] LABS: CREATININE 0.6 mg/dL (0.55-1.3); PHOSPHOROUS 2.7 mg/dL (2.5-4.9)
[2020-03-17 08:57] LABS: BILIRUBIN,TOTAL 0.6 mg/dL (0.2-1); TOT PROT 6.5 g/dl (6.4-8.2)
[2020-03-17] MEDS ORDERED: LISINOPRIL 5 MG TABLET PO SCH ×2 (10:00)
[2020-03-17] MEDS: THIAMINE HCL 100 MG TABLET (FP) PO SCH (10:41)
[2020-03-17] MEDS: MULTIVITAMINS (DAILY MVI) TABLET (FP) PO SCH (10:42)
[2020-03-17] MEDS: ENOXAPARIN NA (PORCINE) 40 MG/0.4 ML DISP.SYRIN SQ SCH (10:42)
[2020-03-17] MEDS: FOLIC ACID 1 MG TABLET (FP) PO SCH (10:42)
[2020-03-17] MEDS: ASPIRIN COATED 81 MG TABLET.EC PO SCH (10:42)
[2020-03-17] MEDS: NICOTINE 21 MG/24 HOURS TOPICAL PATCH TD SCH (17:14)
[2020-03-17] MEDS ORDERED: LABETALOL HCL 5 MG/1 ML (100MG/20 ML VIAL) IVPUSH ONE (22:23)
[2020-03-17] MEDS ORDERED: oxyCODONE HCL 5 MG TABLET PO PRN (23:00)
[2020-03-18] MEDS ORDERED: METOPROLOL TARTRATE 25 MG TABLET (FP) PO ONE (00:36)
[2020-03-18 06:44] VITALS: PULSE 76; TEMP 98.6
[2020-03-18] MEDS ORDERED: LISINOPRIL 20 MG TABLET PO SCH (07:15)
[2020-03-18] MEDS: ASPIRIN COATED 81 MG TABLET.EC PO SCH (09:49)
[2020-03-18] MEDS: NICOTINE 21 MG/24 HOURS TOPICAL PATCH TD SCH (09:49)
[2020-03-18] MEDS: THIAMINE HCL 100 MG TABLET (FP) PO SCH (09:49)
[2020-03-18] MEDS: MULTIVITAMINS (DAILY MVI) TABLET (FP) PO SCH (09:49)
[2020-03-18] MEDS: FOLIC ACID 1 MG TABLET (FP) PO SCH (09:49)
[2020-03-18] MEDS: ENOXAPARIN NA (PORCINE) 40 MG/0.4 ML DISP.SYRIN SQ SCH (09:50)
[2020-03-18 09:54] VITALS: BP 140/90
[2020-03-18] MEDS ORDERED: metoPROLOL SUCCINATE 25 MG TAB.SR.24H (FP) PO SCH ×2 (10:00)
[2020-03-18] MEDS ORDERED: amLODIPine BESYLATE 10 MG TABLET (FP) PO SCH (10:00)
== END 2020-03-18 11:08 | disposition home or self-care (01) | DRG 199 ==
LOC: JER 10:26 → JERBED 16:50 → J5S 22:57
PROVIDERS: ATTEND Student in an Organized Health Care Education/Training Program
DX: I16.0 Hypertensive urgency (principal); I10 Essential (primary) hypertension; S22.41XA Multiple fractures of ribs, right side, initial encounter for closed fracture; Y92.89 Other specified places as the place of occurrence of the external cause; R00.0 Tachycardia, unspecified; F32.9 Major depressive disorder, single episode, unspecified; N20.0 Calculus of kidney; M21.921 Unspecified acquired deformity of right upper arm; R07.89 Other chest pain; E78.5 Hyperlipidemia, unspecified; F17.210 Nicotine dependence, cigarettes, uncomplicated; F14.20 Cocaine dependence, uncomplicated; F19.10 Other psychoactive substance abuse, uncomplicated; S43.421A Sprain of right rotator cuff capsule, initial encounter; W13.2XXA Fall from, out of or through roof, initial encounter
CPT/HCPCS: 36415; 70450-TC; 71250-TC; 72125-TC; 73030-TC-RT-FY; 74176-TC; 80053; 80061; 80307; 81003; 83036; 83721; 83735; 84100; 84439; 84443; 84484; 85025; 85610; 86850; 86900; 86901; 93005; 93010; 93306-TC; 94010; 99285-25; C9803; J0131; U0003